=== PATIENT | female | born 1945 | race Caucasian/White ===

== ENCOUNTER 2017-10-09 02:41 | Inpatient (IN) | payer MEDICARE ==
[~2017-10-09] VITALS: Ht 167.6 cm; Wt 81.7 kg
[~2017-10-09 02:41] MED LIST: ALEVE220 M1 PO; AMITRIPTYLINE H50 MG PO; ASPIRIN ENTERI325 MG PO; ATORVASTATIN CA20 MG PO; CIPROFLOXACIN500 MG PO; CYMBALTA60 MG PO; DIPHENHYDRAMINE25 M1 PO; EFFEXOR XR 3737.5 MG PO; FUROSEMIDE40 MG; LAMOTRIGINE25 MG PO; LEVEMIR100 UNIT/1; LEVOTHYROXINE50 MCG PO; LOMOTIL TABLET1 EACH PO; NORCO 10-325 T1 EACH PO; NOVOLOG100 UNITS/; OXCARBAZEPINE150 MG PO; PROMETHAZINE HC25 M1 PO; TEMAZEPAM15 MG PO; TIZANIDINE HCL4 M1 PO; ZOLOFT50 MG PO
[2017-10-09 02:56] LABS: BASOPHILS % 0.6 % (0.0-1.0); EOSINOPHILS # (AUTO) 0.3 (0.0-0.4); EOSINOPHILS % 4.2 % (0.0-6.0); HEMATOCRIT 40.9 % (34.2-44.1); HEMOGLOBIN 13.4 g/dL (12.0-16.0); LYMPHOCYTES # (AUTO) 1.8 (1.0-3.2); LYMPHOCYTES % 27.2 % (18.0-39.1); MEAN CORPUSCULAR HEMOGLOBIN 27.3 pg (28-32); MEAN CORPUSCULAR HGB CONC 32.8 g/dL (31-35); MEAN CORPUSCULAR VOLUME 83.3 fL (81-99); MONOCYTES # (AUTO) 0.9 (0.2-0.8); NEUTROPHILS # (AUTO) 3.6 (2.1-6.9); NEUTROPHILS % 54.4 % (38.7-80.0); PLATELET COUNT 199 x10e3/uL (140-360); RED BLOOD COUNT 4.91 x10e6/uL (3.6-5.1); RED CELL DISTRIBUTION WIDTH 13.2 % (11.7-14.4)
[2017-10-09 03:10] LABS: INR 0.97; PARTIAL THROMBOPLASTIN TIME 28.1 seconds (23.8-35.5); PROTHROMBIN TIME 13.4 seconds (11.9-14.5)
[2017-10-09 03:20] LABS: ALBUMIN 3.7 g/dL (3.5-5.0); ALBUMIN/GLOBULIN RATIO 0.9 (0.8-2.0); CALCIUM 9.3 mg/dL (8.4-10.2); CREATININE, SERUM 1.39 mg/dL (0.57-1.11)
[2017-10-09 03:26] LABS: CREATINE KINASE MB 2.1 ng/mL (0.00-5.00)
[2017-10-09] MEDS ORDERED: SEROQUEL25 MG PO (03:29)
[2017-10-09] MEDS ORDERED: JANUVIA100 MG PO (03:29)
[2017-10-09] MEDS ORDERED: CYMBALTA30 MG (03:29)
[2017-10-09] MEDS ORDERED: KLOR-CON 1010 MEQ (03:29)
[2017-10-09 03:46] LABS: TROPONIN I 0.01 ng/mL (0-0.300)
--- NOTE | 2017-10-09 04:09 | Diagnostic Imaging Report ---
HIP LEFT 2-3 VW (+/- PELVIS) Comparison: None Clinical history: Status post fall with left hip pain Findings: See impression Impression: 1. Comminuted left femoral (transcervical?) fracture with varus angulation and extension of fracture line into the proximal femoral diaphysis. 2. Age indeterminate/likely chronic fracture of the left inferior pubic ramus. 3. Moderate bilateral hip and partially imaged lumbosacral degenerative changes. Signed by: Dr Cassy uDron MD on 10/09/2017 4:06 AM
--- NOTE | 2017-10-09 04:12 | Diagnostic Imaging Report ---
CHEST SINGLE (PORTABLE), 10/09/2017 2:45 AM Technique: CHEST SINGLE (PORTABLE) Comparison: 06/12/2016 Clinical history: Status post fall, hip fracture Findings: Cardiomediastinal silhouette: Stable. Lungs: No consolidation or edema. Pleural spaces: No effusion or pneumothorax. Bones: Partially imaged right humeral hardware. Unchanged remote right posterior rib fractures. Impression: 1. Lines/Tubes: None 2. No acute abnormality. Signed by: Dr Cassy Duron MD on 10/09/2017 4:08 AM
--- NOTE | 2017-10-09 04:37 | Diagnostic Imaging Report ---
EXAMINATION: Head and cervical spine CT without contrast. HISTORY: Status post fall, head and neck trauma, laceration in the head COMPARISON: Head and cervical spine CT on 06/12/2016. TECHNIQUE: Multidetector axial images were obtained without contrast from the foramen magnum to the vertex and through the cervical spine. The images were reconstructed using brain and bone algorithms. Thin section brain images were reformatted into coronal and sagittal planes. HEAD CT FINDINGS: Skull: No lytic or blastic lesions. No fractures. Parenchyma: -Persistent severe confluent supratentorial white matter chronic microvascular ischemic changes and small chronic lacunar infarcts in the left head of the caudate, right lentiform nucleus and genu of the left internal capsule. - No mass, hemorrhage or CT evidence of acute vascular insult. Brain volume: Normal for age. Ventricles: No hydrocephalus or displacement. Arteries: No density suggestive of thrombus. Dural sinuses: No abnormal density. Extra-axial spaces: No abnormal density. Foramen magnum: No mass, Chiari malformation, or basilar invagination. Sella: No obvious mass. Paranasal/mastoid sinuses: Imaged portions unremarkable. CERVICAL SPINE CT FINDINGS: Alignment:Normal alignment and lordosis. Soft tissues: Approximately 2.4 cm partially calcified nodule in the left lobe of the thyroid gland. Vertebrae: Normal height and density. No acute fracture, infection or neoplasm. Intervertebral disk degenerative changes: C1-C2: Normal. C2-C3: Multiple sclerosis without stenoses. C3-C4: Normal. C4-C5: Prominent facet arthrosis on the right side without significant stenoses. Minimal anterolisthesis.. C5-C6: Mild uncovertebral and facet arthrosis without significant stenoses. C6-C7: Disc osteophyte complex formation, bilateral uncovertebral and facet arthrosis. No significant stenoses.. C7-T1: Normal. IMPRESSION: Head CT: 1. No acute posttraumatic intracranial abnormalities, particularly no hemorrhage. 2. Unchanged moderate chronic microvascular ischemic changes. 3. Unchanged small chronic lacunar infarcts as detailed above. Cervical spine CT: 1. No acute fractures or dislocations. 2. Chronic degenerative changes as detailed above are unchanged. Note: Acute postraumatic spinal cord, vascular or ligamentous injuries cannot be excluded on the basis of the current examination. Signed by: Dr. Mackenzie Urbano M.D. on 10/09/2017 4:33 AM
[2017-10-09] MEDS ORDERED: HYDROMORPHONE 1MG/1ML INJ IV PRN (05:00)
[2017-10-09 05:07] LABS: BILIRUBIN,URINE NEGATIVE (NEGATIVE); KETONES,URINE NEGATIVE (NEGATIVE); LEUKOCYTE ESTERASE ,URINE NEGATIVE (NEGATIVE); NITRITE,URINE NEGATIVE (NEGATIVE); PROTEIN,URINE DIPSTICK NEGATIVE (NEGATIVE); URINE UROBILINOGEN 0.2 mg/dL (0.2 - 1)
[2017-10-09 05:09] LABS: CLARITY,URINE CLEAR (CLEAR); COLOR,URINE YELLOW (YELLOW)
[2017-10-09 05:23] LABS: EPITHELIAL CELLS,URINE RARE /LPF; TRANSITIONAL EPI CELLS,URINE FEW
[2017-10-09] MEDS: SODIUM CHLORIDE 0.9% 1000ML 1,000 ML IV SCH ×2 (05:23→12:47)
[2017-10-09 05:24] LABS: BACTERIA,URINE RARE /HPF; RBC,URINE 0-5 /HPF (0-5); WBC,URINE (MAN) 0-5 /HPF (0-5)
[2017-10-09 07:05] VITALS: BP 143/65
[2017-10-09 08:14] VITALS: BP 143/63
[2017-10-09] MEDS: LAMOTRIGINE 25 MG TAB PO SCH (09:00)
[2017-10-09] MEDS: DULOXETINE HCL 30 MG DELAYED RELEASE PO SCH (09:00)
[2017-10-09] MEDS: ATORVASTATIN 20 MG TAB PO SCH (09:00)
[2017-10-09] MEDS: SERTRALINE HCL 50 MG TAB PO SCH (09:00)
[2017-10-09] MEDS: FUROSEMIDE 40 MG TAB PO SCH (09:00)
[2017-10-09] MEDS ORDERED: HYDROCODONE/APAP 5MG-325MG TAB PO ONE (09:00)
[2017-10-09] MEDS ORDERED: CEFAZOLIN SOD 2 GM in WATER STERILE 10ML VIAL 10 ML IV ONE (09:15)
--- NOTE | 2017-10-09 09:31 | Discharge Summary ---
CHIEF COMPLAINT: Left hip pain. HISTORY OF PRESENT ILLNESS: The patient is a 71-year-old lady who was walking to the bathroom last night. She slipped and fell and complained of immediate onset left hip pain. She was brought into the emergency room, where she was noted have a left hip fracture. Orthopedic consultation was requested. PAST MEDICAL HISTORY: Insulin-dependent diabetes, chronic low back pain. MEDICATIONS: Insulin and chronic Lortab. See medicine reconciliation list. PREVIOUS SURGERIES: Right shoulder ORIF, cholecystectomy, and bilateral foot surgery. ALLERGIES: CIPRO, NEURONTIN, AND LATEX. SOCIAL HISTORY: She is . She does not smoke or drink. She either walks independently or uses a walker/Rollator when necessary. PHYSICAL EXAM: She is a medically frail and deconditioned 71-year-old lady. She is in discomfort. Her left lower extremity is externally rotated. She has pain with any attempted passive range of motion. There are no puncture wounds or abrasions around the left hip. She has diminished muscle tone throughout her upper and lower extremities. LABORATORY STUDIES: X-rays show a left hip intertrochanteric fracture. Her blood work is otherwise unremarkable. IMPRESSION: Left hip fracture. PLAN: The findings and options were discussed with the patient. She was previously a limited ambulator with a walker or Rollator. She is medically deconditioned. Nonetheless, I would recommend an open reduction and internal fixation, using an intramedullary hip screw. The recovery was discussed. It appears she will need a care home facility. We will proceed with getting this on the schedule as soon as possible. Thank you for the consultation. EDEN LAWRENCE MD Job#: [id number] [place]
[2017-10-09] MEDS: HYDROMORPHONE 2MG/ML INJ IV PRN ×2 (10:25→17:46)
[2017-10-09] MEDS: ONDANSETRON HCL INJ 2 MG/ML VIAL IV PRN ×2 (10:25→17:45)
[2017-10-09 12:41] VITALS: BP 137/63
[2017-10-09] MEDS ORDERED: SODIUM CHLORIDE 0.9% 1000ML 1,000 ML IV SCH (14:22)
[2017-10-09] MEDS ORDERED: ONDANSETRON HCL INJ 2 MG/ML VIAL IV PRN (14:30)
[2017-10-09] MEDS ORDERED: DOCUSATE SODIUM 100 MG CAP PO PRN (14:30)
[2017-10-09] MEDS ORDERED: DIPHENHYDRAMINE HCL INJ 50 MG/ML VIAL IM/IV PRN (14:30)
[2017-10-09] MEDS ORDERED: ACETAMINOPHEN 650 MG SUPP PR PRN (14:30)
[2017-10-09] MEDS ORDERED: PROMETHAZINE HCL (IM) 25 MG/ML VIAL INJ PRN (14:30)
[2017-10-09] MEDS ORDERED: ZOLPIDEM TARTRATE 5 MG TAB PO PRN (14:30)
[2017-10-09] MEDS ORDERED: EPHEDRINE SULFATE INJ 50 MG/10 ML SYR ONE (14:32)
[2017-10-09] MEDS ORDERED: LIDOCAINE HCL 2% LOCAL INJ 5 ML SDV VIAL INJ ONE (14:32)
[2017-10-09] MEDS ORDERED: SEVOFLURANE INHAL SOLN 250 ML PEN BTL ONE (14:32)
[2017-10-09] MEDS ORDERED: ONDANSETRON HCL INJ 2 MG/ML VIAL ONE (14:32)
[2017-10-09] MEDS ORDERED: ACETAMINOPHEN 1000 MG/100 ML IV ONE (14:32)
[2017-10-09] MEDS ORDERED: PROPOFOL IV EMULSION 10 MG/ML 20 ML VIAL ONE (14:32)
[2017-10-09] MEDS ORDERED: CEFAZOLIN SOD 1 GM VIAL ONE (14:32)
[2017-10-09] MEDS ORDERED: FENTANYL CITRATE/PF 100MCG/2 ML INJ ONE (15:33)
[2017-10-09] MEDS ORDERED: MIDAZOLAM HCL 2 MG/2 ML VIAL ONE (15:33)
--- NOTE | 2017-10-09 16:03 | Operative Report ---
DATE OF PROCEDURE: October 09, 2017 PREOPERATIVE DIAGNOSIS: Left hip intertrochanteric fracture. POSTOPERATIVE DIAGNOSIS: Left hip intertrochanteric fracture. PROCEDURE: Open reduction and internal fixation, left hip (long intramedullary hip screw). INDICATIONS: The patient is a 71-year-old limited ambulator who fell at home. She has a left hip intertrochanteric fracture. The findings and options have been discussed with the patient. We plan on surgical stabilization. The risks and benefits have been explained. The recovery was discussed. The patient stated she understood and wished to proceed. DESCRIPTION OF PROCEDURE: The patient was brought to the operating room and placed under general anesthetic. Her left hip was prepped and draped in a sterile manner. She was placed in gentle traction on the fracture table. A C-arm image intensifier was used to confirm satisfactory reduction. A small incision was made proximal to the tip of the greater trochanter. A curved awl was used to assist in placing a guide pin down the femoral canal. This was over-reamed to 12 mm. A [employer] intramedullary hip screw was then placed. This was 360 mm in length. This was locked proximally with a 105-mm lag screw. Nice, secure fixation was obtained. The final x-rays confirmed satisfactory reduction and positioning of the hardware. The wounds were irrigated and closed. Subcuticular Vicryl, Mastisol and Steri-Strips were used to close the skin. A sterile bandage was applied. The patient was extubated and transported to the recovery room in stable condition. Blood loss was approximately 100 mL, and all needle and sponge counts were correct. Job#: [id number]
[2017-10-09] MEDS: CELECOXIB 200 MG CAP PO SCH (16:40)
[2017-10-09] MEDS: ASPIRIN 325 MG TAB PO SCH (16:40)
[2017-10-09] MEDS ORDERED: CELECOXIB 100 MG CAP PO SCH (17:00)
[2017-10-09] MEDS: ACETAMINOPHEN 1000 MG/100 ML IV SCH ×2 (17:00→23:59)
[2017-10-09 17:12] VITALS: BP 159/71
[2017-10-09] MEDS ORDERED: DEXTROSE 50% SYRINGE 50 ML IV PRN (17:30)
--- NOTE | 2017-10-09 18:55 | History and Physical ---
CHIEF COMPLAINT: Fall on left hip. HISTORY OF PRESENT ILLNESS: A 71-year-old female who multiple comorbidities who woke up last night, felt very lightheaded and fell on her left hip, found to have a left intratrochanteric femur fracture on imaging studies. The patient was taken to the OR this morning by orthopedics, which is status post ORIF performed early this morning. The patient was seen and evaluated postoperatively, currently doing well with no other complaints. REVIEW OF SYSTEMS: Pertinent positive: Lightheadedness, dizziness, fall. Pertinent negative: Denies any chest pain, palpitations, nausea, vomiting, diarrhea, dysuria, hematuria, frequency, urgency, abdominal pain or any other complaints. The rest of the 14-point review of systems have been reviewed with the patient and are negative. ALLERGIES: LATEX, NATURAL RUBBER, CIPRO, GABAPENTIN AND PREGABALIN. MEDICATIONS: See medication reconciliation form. PAST MEDICAL HISTORY: She has multiple psychiatric issues. PAST SURGICAL HISTORY: Reports none. FAMILY HISTORY: Hypertension and diabetes. SOCIAL HISTORY: No drugs and no alcohol. Unsure about smoking history. LABORATORY DATA: White count 6.6, hemoglobin 13, hematocrit 40, platelets 199,000, coagulation PT 13, INR 0.97, PTT 28. Chemistry: Sodium 135, potassium 5, chloride 106, bicarb 17, BUN 28, creatinine 1.4, glucose 126. LFTs were normal. Troponin was negative. Urinalysis was negative. Microbiology: Pending. IMAGING: CT of the brain was negative. CT cervical spine was also negative. Chest x-ray was negative. Hip x-ray was consistent with left intratrochanteric femur fracture. PHYSICAL EXAMINATION VITAL SIGNS: Temperature 98.2. Pulse 91, respiratory rate 18, blood pressure 159/71, pulse oximetry 98% on room air. GENERAL: In no acute distress, alert and oriented x3, cooperative on examination. HEENT: Head is normocephalic, atraumatic. Eyes: Pupils equal, round and reactive to light bilaterally. Extraocular movements intact bilaterally. Throat with no evidence of erythema or exudates in the posterior pharynx. He has poor dentition. NECK: Supple with good range of motion. PULMONARY: Clear to auscultation bilaterally. No wheezing, no rales, no rhonchi, no crackles appreciated. CARDIOVASCULAR: Positive S1 and S2, no murmurs, rubs or gallops appreciated. ABDOMEN: Soft, nondistended, nontender to palpation Bowel sounds were present. MUSCULOSKELETAL: Strength 5/5 throughout, no evidence of musculoskeletal deficit on exam. No weakness appreciated. NEUROLOGIC: Cranial nerves II-XII grossly intact. No evidence of neurological deficit on examination. SKIN: Intact. Warm to touch. Good capillary refill. EXTREMITIES: No edema. Good range of motion throughout. PSYCHIATRIC: Normal affect and mood. IMPRESSION 1. Status post left femur open reduction internal fixation. 2. Multiple psychiatric issues. 3. Hyperlipidemia. 4. Insomnia. PLAN: Continue same home medications. Pain control. PT and OT evaluation. nursing home facility order. Follow orthopedic recommendations. Will continue to follow. Job#: [id number]
[2017-10-09 20:00] VITALS: BP 111/55
[2017-10-09] MEDS: CEFAZOLIN SOD 1 GM VIAL IV SCH (20:00)
[2017-10-09] MEDS: QUETIAPINE FUMARATE 25 MG TAB PO SCH (20:26)
[2017-10-09] MEDS: KETOROLAC TROMETHAMINE 30 MG/ML VIAL IV PRN (20:26)
[2017-10-09] MEDS: INSULIN REGULAR, HUMAN 100 UNIT/1 ML 3ML VIAL SQ SCH (21:00)
[2017-10-09] MEDS ORDERED: CEFAZOLIN SOD 1 GM/NS 50ML 50 ML IV SCH (22:00)
[2017-10-10] VITALS: BP 95/58
[2017-10-10] MEDS: CEFAZOLIN SOD 1 GM VIAL IV SCH ×2 (03:26→12:33)
[2017-10-10 04:00] VITALS: BP_SYST 108; BP_SYST 95; BP_DIAS 58
[2017-10-10] MEDS: ACETAMINOPHEN 1000 MG/100 ML IV SCH ×2 (05:19→12:33)
[2017-10-10] MEDS: SODIUM CHLORIDE 0.9% 1000ML 1,000 ML IV SCH (05:40)
[2017-10-10 07:07] LABS: BASOPHILS % 0.4 % (0.0-1.0); EOSINOPHILS # (AUTO) 0.3 (0.0-0.4); HEMATOCRIT 29.5 % (34.2-44.1); HEMOGLOBIN 9.4 g/dL (12.0-16.0); LYMPHOCYTES # (AUTO) 1.3 (1.0-3.2); LYMPHOCYTES % 27.6 % (18.0-39.1); MEAN CORPUSCULAR HEMOGLOBIN 27.3 pg (28-32); MEAN CORPUSCULAR HGB CONC 31.9 g/dL (31-35); MEAN CORPUSCULAR VOLUME 85.8 fL (81-99); MONOCYTES # (AUTO) 0.5 (0.2-0.8); NEUTROPHILS # (AUTO) 2.6 (2.1-6.9); NEUTROPHILS % 55.6 % (38.7-80.0); PLATELET COUNT 152 x10e3/uL (140-360); RED BLOOD COUNT 3.44 x10e6/uL (3.6-5.1); RED CELL DISTRIBUTION WIDTH 13.5 % (11.7-14.4)
[2017-10-10] MEDS: HYDROCODONE/APAP 7.5MG-325MG 1 EA TAB PO PRN ×2 (07:23→15:27)
[2017-10-10 07:30] LABS: ALBUMIN 2.8 g/dL (3.5-5.0); ANION GAP 12.5 mmol/L (8-16); CALCIUM 8.2 mg/dL (8.4-10.2); CREATININE, SERUM 1.34 mg/dL (0.57-1.11); POTASSIUM 5.5 mmol/L (3.5-5.1)
[2017-10-10] MEDS: ASPIRIN 325 MG TAB PO SCH ×2 (08:48→17:26)
[2017-10-10] MEDS: INSULIN REGULAR, HUMAN 100 UNIT/1 ML 3ML VIAL SQ SCH ×4 (08:48→20:40)
[2017-10-10] MEDS: LAMOTRIGINE 25 MG TAB PO SCH (08:48)
[2017-10-10] MEDS: DULOXETINE HCL 30 MG DELAYED RELEASE PO SCH (08:48)
[2017-10-10] MEDS: CELECOXIB 200 MG CAP PO SCH ×2 (08:48→17:26)
[2017-10-10] MEDS: ATORVASTATIN 20 MG TAB PO SCH (08:49)
[2017-10-10] MEDS: SERTRALINE HCL 50 MG TAB PO SCH (08:49)
[2017-10-10 08:51] VITALS: BP 128/60
[2017-10-10] MEDS: FUROSEMIDE 40 MG TAB PO SCH (09:45)
[2017-10-10] MEDS: KETOROLAC TROMETHAMINE 30 MG/ML VIAL IV PRN (10:25)
[2017-10-10 12:57] VITALS: BP 106/53
[2017-10-10] MEDS ORDERED: ACETAMINOPHEN 1000 MG/100 ML IV PRN (14:30)
[2017-10-10 16:38] VITALS: BP 95/48
[2017-10-10] MEDS ORDERED: BENZONATATE 100 MG CAP PO PRN (18:30)
[2017-10-10] MEDS ORDERED: FUROSEMIDE INJ 10 MG/ML 4 ML VIAL IV ONE (18:30)
[2017-10-10 20:00] VITALS: BP 105/56
[2017-10-10] MEDS: HYDROCODONE/APAP 5MG-325MG TAB PO PRN (20:39)
[2017-10-10] MEDS: QUETIAPINE FUMARATE 25 MG TAB PO SCH (20:40)
[2017-10-10] MEDS ORDERED: SODIUM CHLORIDE 0.9% 1000ML 1,000 ML IV SCH (23:15)
[2017-10-11] VITALS (7 sets, daily range): BP systolic 80–145; BP diastolic 48–68
[2017-10-11] MEDS: HYDROCODONE/APAP 5MG-325MG TAB PO PRN (00:30)
[2017-10-11 07:53] LABS: BASOPHILS % 0.2 % (0.0-1.0); EOSINOPHILS # (AUTO) 0.3 (0.0-0.4); EOSINOPHILS % 5.5 % (0.0-6.0); HEMATOCRIT 26.9 % (34.2-44.1); HEMOGLOBIN 8.8 g/dL (12.0-16.0); LYMPHOCYTES # (AUTO) 1.4 (1.0-3.2); LYMPHOCYTES % 26.1 % (18.0-39.1); MEAN CORPUSCULAR HEMOGLOBIN 27.3 pg (28-32); MEAN CORPUSCULAR HGB CONC 32.7 g/dL (31-35); MEAN CORPUSCULAR VOLUME 83.5 fL (81-99); MONOCYTES # (AUTO) 0.4 (0.2-0.8); MONOCYTES % 7.5 % (4.4-11.3); NEUTROPHILS # (AUTO) 3.3 (2.1-6.9); NEUTROPHILS % 60.3 % (38.7-80.0); PLATELET COUNT 150 x10e3/uL (140-360); RED BLOOD COUNT 3.22 x10e6/uL (3.6-5.1); RED CELL DISTRIBUTION WIDTH 13.5 % (11.7-14.4)
[2017-10-11] MEDS: HYDROCODONE/APAP 7.5MG-325MG 1 EA TAB PO PRN ×3 (08:02→20:32)
[2017-10-11 08:14] LABS: ANION GAP 12.9 mmol/L (8-16); CALCIUM 8.2 mg/dL (8.4-10.2); CREATININE, SERUM 1.28 mg/dL (0.57-1.11); POTASSIUM 3.9 mmol/L (3.5-5.1)
[2017-10-11] MEDS: DULOXETINE HCL 30 MG DELAYED RELEASE PO SCH (08:27)
[2017-10-11] MEDS: LAMOTRIGINE 25 MG TAB PO SCH (08:27)
[2017-10-11] MEDS: CELECOXIB 200 MG CAP PO SCH ×2 (08:27→16:52)
[2017-10-11] MEDS: SERTRALINE HCL 50 MG TAB PO SCH (08:27)
[2017-10-11] MEDS: INSULIN REGULAR, HUMAN 100 UNIT/1 ML 3ML VIAL SQ SCH ×4 (08:27→20:32)
[2017-10-11] MEDS: ASPIRIN 325 MG TAB PO SCH ×2 (08:27→16:52)
[2017-10-11] MEDS: ATORVASTATIN 20 MG TAB PO SCH (08:27)
[2017-10-11] MEDS: KETOROLAC TROMETHAMINE 30 MG/ML VIAL IV PRN (10:10)
[2017-10-11] MEDS: QUETIAPINE FUMARATE 25 MG TAB PO SCH (20:28)
[2017-10-12] VITALS: BP 115/56
[2017-10-12 04:00] VITALS: BP 147/65
[2017-10-12] MEDS: HYDROCODONE/APAP 7.5MG-325MG 1 EA TAB PO PRN ×3 (04:36→17:45)
[2017-10-12] MEDS: LAMOTRIGINE 25 MG TAB PO SCH (08:22)
[2017-10-12] MEDS: CELECOXIB 200 MG CAP PO SCH ×2 (08:22→17:19)
[2017-10-12] MEDS: ASPIRIN 325 MG TAB PO SCH ×2 (08:22→17:19)
[2017-10-12] MEDS: DULOXETINE HCL 30 MG DELAYED RELEASE PO SCH (08:22)
[2017-10-12] MEDS: SERTRALINE HCL 50 MG TAB PO SCH (08:22)
[2017-10-12] MEDS: ATORVASTATIN 20 MG TAB PO SCH (08:22)
[2017-10-12] MEDS: INSULIN REGULAR, HUMAN 100 UNIT/1 ML 3ML VIAL SQ SCH ×4 (08:22→20:31)
[2017-10-12 08:24] VITALS: BP 123/70
[2017-10-12 12:26] VITALS: BP 118/57
[2017-10-12] MEDS ORDERED: XANAX0.5 MG PO (15:26)
[2017-10-12] MEDS ORDERED: ALPRAZOLAM 0.5 MG TAB PO PRN (15:30)
[2017-10-12 16:09] VITALS: BP 130/63
[2017-10-12 20:11] VITALS: BP 134/62
[2017-10-12] MEDS: QUETIAPINE FUMARATE 25 MG TAB PO SCH (20:30)
[2017-10-12] MEDS: KETOROLAC TROMETHAMINE 30 MG/ML VIAL IV PRN (20:38)
[2017-10-13] VITALS: BP 132/60
[2017-10-13 04:00] VITALS: BP 157/70
[2017-10-13] MEDS: ASPIRIN 325 MG TAB PO SCH ×2 (08:20→16:27)
[2017-10-13] MEDS: SERTRALINE HCL 50 MG TAB PO SCH (08:20)
[2017-10-13] MEDS: INSULIN REGULAR, HUMAN 100 UNIT/1 ML 3ML VIAL SQ SCH ×4 (08:20→21:00)
[2017-10-13] MEDS: DULOXETINE HCL 30 MG DELAYED RELEASE PO SCH (08:20)
[2017-10-13] MEDS: LAMOTRIGINE 25 MG TAB PO SCH (08:20)
[2017-10-13] MEDS: ATORVASTATIN 20 MG TAB PO SCH (08:20)
[2017-10-13] MEDS: CELECOXIB 200 MG CAP PO SCH ×2 (08:20→16:27)
[2017-10-13] MEDS: HYDROCODONE/APAP 7.5MG-325MG 1 EA TAB PO PRN ×3 (11:30→23:57)
[2017-10-13 11:39] VITALS: BP 134/63
[2017-10-13 13:42] LABS: BASOPHILS % 0.2 % (0.0-1.0); EOSINOPHILS # (AUTO) 0.2 (0.0-0.4); EOSINOPHILS % 2.8 % (0.0-6.0); HEMATOCRIT 27.5 % (34.2-44.1); HEMOGLOBIN 8.7 g/dL (12.0-16.0); LYMPHOCYTES # (AUTO) 1.3 (1.0-3.2); LYMPHOCYTES % 21.8 % (18.0-39.1); MEAN CORPUSCULAR HEMOGLOBIN 27.1 pg (28-32); MEAN CORPUSCULAR HGB CONC 31.6 g/dL (31-35); MEAN CORPUSCULAR VOLUME 85.7 fL (81-99); MONOCYTES # (AUTO) 0.4 (0.2-0.8); NEUTROPHILS # (AUTO) 4.2 (2.1-6.9); NEUTROPHILS % 68.1 % (38.7-80.0); RED BLOOD COUNT 3.21 x10e6/uL (3.6-5.1); RED CELL DISTRIBUTION WIDTH 13.4 % (11.7-14.4)
[2017-10-13 14:38] LABS: PLATELET COUNT 179 x10e3/uL (140-360)
[2017-10-13 16:37] VITALS: BP 141/63
[2017-10-13] MEDS ORDERED: ENOXAPARIN SOD INJ 40 MG/0.4 ML SYR SC SCH (17:00)
[2017-10-13 20:00] VITALS: BP 137/65
[2017-10-13] MEDS: QUETIAPINE FUMARATE 25 MG TAB PO SCH (23:56)
[2017-10-14] VITALS (7 sets, daily range): BP systolic 133–177; BP diastolic 67–80
[2017-10-14] MEDS: HYDROCODONE/APAP 7.5MG-325MG 1 EA TAB PO PRN ×3 (04:10→15:54)
[2017-10-14 06:42] LABS: BASOPHILS % 0.1 % (0.0-1.0); EOSINOPHILS # (AUTO) 0.2 (0.0-0.4); EOSINOPHILS % 3.4 % (0.0-6.0); HEMATOCRIT 23.8 % (34.2-44.1); LYMPHOCYTES % 30.3 % (18.0-39.1); MEAN CORPUSCULAR HGB CONC 32.4 g/dL (31-35); MEAN CORPUSCULAR VOLUME 83.5 fL (81-99); MONOCYTES # (AUTO) 0.5 (0.2-0.8); MONOCYTES % 7.6 % (4.4-11.3); NEUTROPHILS # (AUTO) 3.9 (2.1-6.9); NEUTROPHILS % 57.9 % (38.7-80.0); PLATELET COUNT 180 x10e3/uL (140-360); RED BLOOD COUNT 2.85 x10e6/uL (3.6-5.1); RED CELL DISTRIBUTION WIDTH 13.3 % (11.7-14.4)
[2017-10-14 06:43] LABS: HEMOGLOBIN 7.7 g/dL (12.0-16.0)
[2017-10-14 07:20] LABS: ANION GAP 13.3 mmol/L (8-16); CALCIUM 8.9 mg/dL (8.4-10.2); CREATININE, SERUM 0.95 mg/dL (0.57-1.11); POTASSIUM 4.3 mmol/L (3.5-5.1)
--- NOTE | 2017-10-14 08:22 | Progress Note ---
DATE: October 14, 2017 TIME: 7:40 a.m. OVERNIGHT: Pain controlled. REVIEW OF SYSTEMS: Denies any dizziness. PHYSICAL EXAMINATION VITAL SIGNS: Reviewed. GENERAL: A tired-appearing woman resting in bed. HEENT: Anicteric. CARDIOVASCULAR: Normal S1 and S2. LUNGS: Moderate breath sounds. ABDOMEN: Soft, nontender and nondistended. EXTREMITIES: Left hip dressing in place clean and dry. SKIN: Dry. PSYCHIATRIC: Normal affect. NEUROLOGICAL: Alert and oriented times 3. LABS: Reviewed. MEDICATIONS: Reviewed. ASSESSMENT: A 71-year-old woman with: 1. Left femoral fracture. 2. Acute kidney injury. 3. Normocytic anemia, moderate and worsening. 4. Hip pain. 5. Insomnia. 6. Psychiatric disorder. 7. Diabetes mellitus, type 2. PLAN 1. Continue physical therapy. 2. Continue pain control. 3. Monitor blood counts. Obtain stool occult blood. Add Pantoprazole for GI prophylaxis. Obtain anemia panel. Utilize ferrous sulfate. 4. Resume Levemir. Will start at 7 units daily. Will also obtain a hemoglobin A1c and lipid panel. 5. Monitor closely. Continue physical therapy. 6. Skilled facility placement pending. Job#: [id number] [place]
[2017-10-14 08:34] LABS: FERRITIN 99.15 ng/mL (4.63-204.00)
[2017-10-14] MEDS ORDERED: INSULIN DETEMIR 100 UNIT/ML PEN SQ SCH ×2 (09:00→21:00)
[2017-10-14] MEDS: LAMOTRIGINE 25 MG TAB PO SCH (09:00)
[2017-10-14] MEDS: PANTOPRAZOLE SOD 40 MG TABEC PO SCH ×2 (09:00→22:32)
[2017-10-14] MEDS: DULOXETINE HCL 30 MG DELAYED RELEASE PO SCH ×2 (09:00→17:37)
[2017-10-14] MEDS: ATORVASTATIN 20 MG TAB PO SCH (09:00)
[2017-10-14] MEDS: ASPIRIN 325 MG TAB PO SCH ×2 (09:00→17:37)
[2017-10-14] MEDS: SERTRALINE HCL 50 MG TAB PO SCH (09:01)
[2017-10-14] MEDS: INSULIN REGULAR, HUMAN 100 UNIT/1 ML 3ML VIAL SQ SCH ×4 (09:01→21:00)
[2017-10-14] MEDS: FERROUS SULFATE 325 MG TAB PO SCH ×2 (10:14→17:37)
[2017-10-14 11:58] LABS: HEMATOCRIT 26.2 % (34.2-44.1); HEMOGLOBIN 8.4 g/dL (12.0-16.0)
[2017-10-14] MEDS ORDERED: ATORVASTATIN 20 MG TAB PO SCH (21:00)
[2017-10-14] MEDS: QUETIAPINE FUMARATE 25 MG TAB PO SCH (22:32)
[2017-10-14] MEDS: HYDROCODONE/APAP 5MG-325MG TAB PO PRN (22:32)
[2017-10-15] VITALS: BP 161/70
[2017-10-15 04:00] VITALS: BP 174/81
[2017-10-15 07:55] LABS: BASOPHILS % 0.3 % (0.0-1.0); EOSINOPHILS # (AUTO) 0.2 (0.0-0.4); EOSINOPHILS % 3.2 % (0.0-6.0); HEMATOCRIT 27.4 % (34.2-44.1); HEMOGLOBIN 8.8 g/dL (12.0-16.0); LYMPHOCYTES # (AUTO) 1.6 (1.0-3.2); LYMPHOCYTES % 22.2 % (18.0-39.1); MEAN CORPUSCULAR HEMOGLOBIN 27.2 pg (28-32); MEAN CORPUSCULAR HGB CONC 32.1 g/dL (31-35); MEAN CORPUSCULAR VOLUME 84.6 fL (81-99); MONOCYTES # (AUTO) 0.5 (0.2-0.8); MONOCYTES % 7.1 % (4.4-11.3); NEUTROPHILS # (AUTO) 4.7 (2.1-6.9); NEUTROPHILS % 65.5 % (38.7-80.0); PLATELET COUNT 263 x10e3/uL (140-360); RED BLOOD COUNT 3.24 x10e6/uL (3.6-5.1); RED CELL DISTRIBUTION WIDTH 13.4 % (11.7-14.4)
[2017-10-15 08:04] LABS: ANION GAP 14.1 mmol/L (8-16); CALCIUM 9.5 mg/dL (8.4-10.2); CREATININE, SERUM 1.01 mg/dL (0.57-1.11); POTASSIUM 5.1 mmol/L (3.5-5.1)
[2017-10-15 08:16] VITALS: BP 171/76
[2017-10-15] MEDS: HYDROCODONE/APAP 7.5MG-325MG 1 EA TAB PO PRN (08:23)
[2017-10-15] MEDS: INSULIN REGULAR, HUMAN 100 UNIT/1 ML 3ML VIAL SQ SCH ×3 (08:24→17:06)
[2017-10-15] MEDS: SERTRALINE HCL 50 MG TAB PO SCH (08:50)
[2017-10-15] MEDS: ASPIRIN 325 MG TAB PO SCH ×2 (08:50→17:06)
[2017-10-15] MEDS: FERROUS SULFATE 325 MG TAB PO SCH ×2 (08:50→17:06)
[2017-10-15] MEDS: DULOXETINE HCL 30 MG DELAYED RELEASE PO SCH ×2 (08:50→17:06)
[2017-10-15] MEDS: LAMOTRIGINE 25 MG TAB PO SCH (08:50)
[2017-10-15] MEDS: PANTOPRAZOLE SOD 40 MG TABEC PO SCH (08:50)
[2017-10-15 09:16] VITALS: BP 171/76
--- NOTE | 2017-10-15 09:24 | Progress Note ---
DATE: October 15, 2017 TIME: 8:00 a.m. OVERNIGHT: No events. REVIEW OF SYSTEMS: Denies any dizziness, chest pain. PHYSICAL EXAMINATION: VITAL SIGNS: Reviewed. GENERAL APPEARANCE: Tired-appearing woman resting in bed. HEENT: Anicteric. CARDIOVASCULAR: Normal S1 and S2. LUNGS: Bilateral breath sounds. ABDOMEN: Soft, nontender, nondistended. EXTREMITIES: No edema or calf tenderness. Left hip dressing clean and dry. NEUROLOGICAL: Alert and appropriate. Moving all extremities. LABS: Reviewed. MEDICATIONS: Reviewed. ASSESSMENT: A 71-year-old woman: 1. Left femoral fracture. 2. Acute kidney injury. 3. Normocytic anemia, moderate. 4. Hip pain. 5. Insomnia. 6. Psychiatric disorder. 7. Diabetes mellitus type 2. 8. Hypertension. PLAN: 1. Continue physical therapy. 2. Continue pain control. 3. Treat blood pressure. 4. Continue Levemir. Hemoglobin A1c is 7.3, LDL is 37, and triglyceride is 115. Glucose is still uncontrolled. Will titrate Levemir up from 7 units up to 12 units. 5. Start beta cassidy for blood pressure control. Job#: [id number]
[2017-10-15] MEDS: KETOROLAC TROMETHAMINE 30 MG/ML VIAL IV PRN (11:17)
[2017-10-15 12:48] VITALS: BP 138/62
[2017-10-15] MEDS ORDERED: METOPROLOL TARTRATE 25 MG TAB PO SCH (14:00)
[2017-10-15] MEDS ORDERED: ACETAMINOPHEN/CODEINE 300MG - 30MG TAB PO PRN (14:45)
[2017-10-15 16:23] VITALS: BP 120/59
[2017-10-15] MEDS ORDERED: INSULIN DETEMIR 100 UNIT/ML PEN SQ SCH (21:00)
== END 2017-10-15 18:05 | DRG 481 ==
LOC: ER 02:41 → ERHOLD 05:26 → MED/SURG 05:27
PROVIDERS: ADMIT Internal Medicine; ATTEND Internal Medicine
PROC: 0QS706Z Reposition Left Upper Femur with Intramedullary Internal Fixation Device, Open Approach (ICD-10-PCS; principal; 2017-10-09 13:00)
DX: S72.032A Displaced midcervical fracture of left femur, initial encounter for closed fracture (principal); N17.9 Acute kidney failure, unspecified; D64.9 Anemia, unspecified; E11.65 Type 2 diabetes mellitus with hyperglycemia; F09 Unspecified mental disorder due to known physiological condition; M25.552 Pain in left hip; G47.00 Insomnia, unspecified; Q75.2 Hypertelorism; F99 Mental disorder, not otherwise specified; W01.0XXA Fall on same level from slipping, tripping and stumbling without subsequent striking against object, initial encounter; Y92.002 Bathroom of unspecified non-institutional (private) residence as the place of occurrence of the external cause
CPT/HCPCS: 36415; 70450; 71010; 72125; 76000; 80048; 80053; 80061; 81001; 82270; 82550; 82553; 82728; 82948; 83036; 83540; 84466; 84484; 85014; 85018; 85025; 85610; 85730; 86850; 86900; 87086; 93005; 93971; 97139; 99284; J0690; J1170; J1650; J1885; J1940; J2001; J2250; J2405; J7030; J7799

== ENCOUNTER 2018-08-10 17:39 | Emergency (ER) | payer MEDICARE ==
[~2018-08-10] VITALS: Ht 167.6 cm; Wt 81.6 kg
[~2018-08-10 17:39] MED LIST changes: +CYMBALTA30 MG; +JANUVIA100 MG PO; +KLOR-CON 1010 MEQ; +SEROQUEL25 MG PO; +XANAX0.5 MG PO
--- OUTSIDE RECORDS SUMMARY | 2018-08-10 17:41 | XMS REPORT ---
Author [facility] Address Unknown Phone Unavailable Care Team Providers Care Batch Unit Treater Name Role Phone Ariana OWENS Unavailable Unavailable Problems This patient has no known problems. Allergies, Adverse Reactions, Alerts This patient has no known allergies or adverse reactions. Medications This patient has no known medications. Results Test Description Test Time Test Comments Text Results Atomic Results Result Comments HIP LEFT 2-3 VW (+/- PELVIS) [place] [address] Patient Name: BERNABE WILLIAMSON MR #: [id number] : 1945 Age/Sex: 71/F Req #: [id number] Adm Physician: Ordered by: DENIA OWENS MD Report #: [id number] Location: ER Room/Bed: Procedure: [id number] DX/HIP LEFT 2-3 VW (+/- PELVIS) Exam Date: Exam Time: REPORT STATUS: Signed HIP LEFT 2-3 VW (+/- PELVIS) Comparison: None Clinical history: Status post fall with left hip pain Findings: See impression Impression: 1. Comminuted left femoral (transcervical?) fracture with varus angulation and extension of fracture line into the proximal femoral diaphysis. 2. Age indeterminate/likely chronic fracture of the left inferior pubic ramus. 3. Moderate bilateral hip and partially imaged lumbosacral degenerative changes. Signed by: Dr Todd Duron MD on 10/09/2017 4:06 AM Dictated By: TODD DURON MD 5 Transcribed By: СЕРГЕЙ on 10/09/17405 COPY TO: DENIA OWENS MD CHEST SINGLE (PORTABLE) [place] [address] Patient Name: BERNABE WILLIAMSON MR #: [id number] : 1945 Age/Sex: 71/F Req #: [id number] Adm Physician: Ordered by: DENIA OWENS MD Report #: [id number] Location: ER Room/Bed: Procedure: [id number] DX/CHEST SINGLE (PORTABLE) Exam Date: 10/09/17 Exam Time: 0340 REPORT STATUS: Signed CHEST SINGLE (PORTABLE), 10/09/2017 2:45 AM Technique: CHEST SINGLE (PORTABLE) Comparison: 06/12/2016 Clinical history: Status post fall, hip fracture Findings: Cardiomediastinal silhouette: Stable. Lungs: No consolidation or edema. Pleural spaces: No effusion or pneumothorax. Bones: Partially imaged right humeral hardware. Unchanged remote right posterior rib fractures. Impression: 1. Lines/Tubes: None 2. No acute abnormality. Signed by: Dr Todd Duron MD on 10/09/2017 4:08 AM Dictated By: TODD DURON MD 7 Transcribed By: СЕРГЕЙ on 10/09/17407 COPY TO: DENIA OWENS MD CT BRAIN WO [place] [address] Patient Name: BERNABE WILLIAMSON MR #: [id number] : 1945 [facility] 71[id number] Req #: [id number] [facility] Physician: Ordered by: EDNIA OWENS MD Report #: [id number] Location: ER Room/Bed: Procedure: [id number] CT/CT BRAIN WO Exam Date: 10/09/17 Exam Time: 0310 REPORT STATUS: Signed EXAMINATION: Head and cervical spine CT without contrast. HISTORY: Status post fall, head and neck trauma, laceration in the head COMPARISON: Head and cervical spine CT on 06/12/2016. TECHNIQUE: Multidetector axial images were obtained without contrast from the foramen magnum to the vertex and through the cervical spine. The images were reconstructed using brain and bone algorithms. Thin section brain images were reformatted into coronal and sagittal planes. HEAD CT FINDINGS: Skull: No lytic or blastic lesions. No fractures. Parenchyma: -Persistent severe confluent supratentorial white matter chronic microvascular ischemic changes and small chronic lacunar infarcts in the left head of the caudate, right lentiform nucleus and genu of the left internal capsule. - No mass, hemorrhage or CT irene dence of acute vascular insult. Brain volume: Normal for age. Ventricles: No hydrocephalus or displacement. Arteries: No density suggestive of thrombus. Dural sinuses: No abnormal density. Extra-axial spaces: No abnormal density. Foramen magnum: No mass, Chiari malformation, or basilar invagination. Sella: No obvious mass. Paranasal/mastoid sinuses: Imaged portions unremarkable. CERVICAL SPINE CT FINDINGS: Alignment:Normal alignment and lordosis. Soft tissues: Approximately 2.4 cm partially calcified nodule in the left lobe of the thyroid gland. Vertebrae: Normal height and density. No acute fracture, infection or neoplasm. Intervertebral disk degenerative changes: C1-C2: Normal. C2-C3: Multiple sclerosis without stenoses. C3-C4: Normal. C4-C5: Prominent facet arthrosis on the right side without significant stenoses. Minimal anterolisthesis.. C5-C6: Mild uncovertebral and facet arthrosis without significant stenoses. C6-C7: Disc osteophyte complex formation, bilateral uncovertebral and facet arthrosis. No significant stenoses.. C7-T1: Normal. IMPRESSION: Head CT: 1. No acute posttraumatic intracranial abnormalities, particularly no hemorrhage. 2. Unchanged moderate chronic microvascular ischemic changes. 3. Unchanged small chronic lacunar infarcts as detailed above. Cervical spine CT: 1. No acute fractures or dislocations. 2. Chronic degenerative changes as detailed above are unchanged. Note: Acute postraumatic spinal cord, vascular or ligamentous injuries cannot be excluded on the basis of the current examination. Signed by: Dr. Keeley Urbano M.D. on 10/09/2017 4:33 AM Dictated By: KEELEY URBANO MD 2 Transcribed By: СЕРГЕЙ on 10/09/17432 COPY TO: DENIA OWENS MD CT CERVICAL SPINE WO [place] [address] Patient Name: BERNABE WILLIAMSON MR #: [id number] : 1945 Age/Sex: 71/F Req #: [id number] Adm Physician: Ordered by: DENIA OWENS MD Report #: [id number] Location: ER Room/Bed: Procedure: [id number] CT/CT CERVICAL SPINE WO Exam Date: 10/09/17 Exam Time: 0310 REPORT STATUS: Signed EXAMINATION: Head and cervical spine CT without contrast. HISTORY: Status post fall, head and neck trauma, laceration in the head COMPARISON: Head and cervical spine CT on 06/12/2016. TECHNIQUE: Multidetector axial images were obtained without contrast from the foramen magnum to the vertex and through the cervical spine. The images were reconstructed using brain and bone algorithms. Thin section brain images were reformatted into coronal and sagittal planes. HEAD CT FINDINGS: Skull: No lytic or blastic lesions. No fractures. Parenchyma: -Persistent severe confluent supratentorial white matter chronic microvascular ischemic changes and small chronic lacunar infarcts in the left head of the caudate, right lentiform nucleus and genu of the left internal capsule. - No mass, hemorrhage or CT evidence of acute vascular insult. Brain volume: Normal for age. Ventricles: No hydrocephalus or displacement. Arteries: No density suggestive of thrombus. Dural sinuses: No abnormal density. Extra-axial spaces: No abnormal density. Foramen magnum: No mass, Chiari malformation, or basilar invagination. Sella: No obvious mass. Paranasal/mastoid sinuses: Imaged portions unremarkable. CERVICAL SPINE CT FINDINGS: Alignment:Normal alignment and lordosis. Soft tissues: Approximately 2.4 cm partially calcified nodule in the left lobe of the thyroid gland. Vertebrae: Normal height and density. No acute fracture, infection or neoplasm. Intervertebral disk degenerative changes: C1-C2: Normal. C2-C3: Multiple sclerosis without stenoses. C3-C4: Normal. C4-C5: Prominent facet arthrosis on the right side without significant stenoses. Minimal anterolisthesis.. C5-C6: Mild uncovertebral and facet arthrosis without significant stenoses. C6-C7: Disc osteophyte complex formation, bilateral uncovertebral and facet arthrosis. No significant stenoses.. C7-T1: Normal.
[2018-08-10] MEDS ORDERED: HYDROCODONE/APAP 10MG-325MG TAB PO ONE (19:00)
--- NOTE | 2018-08-10 20:57 | Diagnostic Imaging Report ---
EXAMINATION: Left shoulder series. CLINICAL HISTORY: Status post fall 3 days ago left arm pain. COMPARISON: None. . Discussion: Decreased mineralization. Comminuted, nondisplaced likely three-part fracture of the humeral head, with fracture lines noted at the greater tuberosity and surgical neck. The humeral head remains aligned with the acetabulum. No osteolytic or osteoblastic lesions. There is no evidence of a.c. separation. Degenerative changes in the glenohumeral and acromioclavicular joints. Deformity of the distal clavicle, which likely reflects prior trauma. IMPRESSION: 1. Comminuted, nondisplaced likely 3 part fracture of the left humeral head, involving the surgical neck and greater tuberosity Signed by: Dr. Sami Singh M.D. on 08/10/2018 8:53 PM
--- NOTE | 2018-08-10 20:59 | Diagnostic Imaging Report ---
Exam: Left humerus, 3 views History: Status post fall 3 days ago Comparison: None. Findings: Exam is limited by patient positioning, particularly the distal portion of the humerus. Decreased bone mineralization. No acute, displaced fracture or dislocation in the mid to distal humerus, within the limitations of the study. No abnormal soft tissue calcification or soft tissue defect. No soft tissue swelling. Impression: 1. Exam is limited by patient positioning, particularly the distal portion of the humerus. 2. Decreased bone mineralization. 3. No acute, displaced fracture or dislocation in the mid to distal humerus, within the limitations of the study. Please see previously dictated report on dedicated shoulder films for description of humeral head fracture Signed by: Dr. Sami Singh M.D. on 08/10/2018 8:56 PM
== END 2018-08-10 22:00 | disposition home or self-care (01) ==
LOC: ER 17:39
DX: S42.352A Displaced comminuted fracture of shaft of humerus, left arm, initial encounter for closed fracture (principal); W01.0XXA Fall on same level from slipping, tripping and stumbling without subsequent striking against object, initial encounter; Y93.01 Activity, walking, marching and hiking; Y92.008 Other place in unspecified non-institutional (private) residence as the place of occurrence of the external cause; E11.9 Type 2 diabetes mellitus without complications; F31.9 Bipolar disorder, unspecified
CPT/HCPCS: 99283

== ENCOUNTER 2021-02-06 04:42 | Inpatient (IN) | payer MEDICARE ==
[~2021-02-06] VITALS: Ht 170.2 cm; Wt 81.6 kg
[~2021-02-06 04:42] MED LIST changes: -CYMBALTA30 MG; +CYMBALTA30 MG PO; -LEVEMIR100 UNIT/1; +LEVEMIR100 UNIT/1 SQ
[2021-02-06] MEDS ORDERED: SODIUM CHLORIDE 0.9% 1000ML 1,000 ML IV STA (04:46)
[2021-02-06 05:13] LABS: BASOPHILS % 0.5 % (0.0-1.0); EOSINOPHILS # (AUTO) 0.2 (0.0-0.4); EOSINOPHILS % 2.7 % (0.0-6.0); HEMATOCRIT 44.7 % (34.2-44.1); HEMOGLOBIN 14.2 g/dL (12.0-16.0); LYMPHOCYTES % 25.9 % (18.0-39.1); MEAN CORPUSCULAR HEMOGLOBIN 26.3 pg (28-32); MEAN CORPUSCULAR HGB CONC 31.8 g/dL (31-35); MEAN CORPUSCULAR VOLUME 82.9 fL (81-99); MONOCYTES # (AUTO) 0.7 (0.2-0.8); MONOCYTES % 8.4 % (4.4-11.3); NEUTROPHILS # (AUTO) 4.8 (2.1-6.9); PLATELET COUNT 318 x10e3/uL (140-360); RED BLOOD COUNT 5.39 x10e6/uL (3.6-5.1)
[2021-02-06 05:18] LABS: CLARITY,URINE CLEAR (CLEAR); COLOR,URINE YELLOW (YELLOW); KETONES,URINE NEGATIVE (NEGATIVE); LEUKOCYTE ESTERASE ,URINE NEGATIVE (NEGATIVE); NITRITE,URINE NEGATIVE (NEGATIVE); PROTEIN,URINE DIPSTICK >=300 (NEGATIVE); URINE UROBILINOGEN 0.2 mg/dL (0.2 - 1)
[2021-02-06] MEDS: LEVETIRACETAM 500MG/5ML VIAL 500 MG in SODIUM CHLORIDE 0.9% 100 ML 100 ML IV SCH ×2 (05:26→17:56)
[2021-02-06 05:33] LABS: ALBUMIN 4.1 g/dL (3.5-5.0); ANION GAP 17.6 mmol/L (8-16); CALCIUM 9.3 mg/dL (8.4-10.2); CREATININE, SERUM 1.22 mg/dL (0.57-1.11); POTASSIUM 5.6 mmol/L (3.5-5.1)
[2021-02-06] MEDS ORDERED: LEVETIRACETAM 500 MG/5 ML VIAL IV ONE ×2 (05:33→17:56)
[2021-02-06] MEDS ORDERED: SODIUM CHLORIDE 0.9% 100 ML ONE ×2 (05:34→17:57)
[2021-02-06 05:35] LABS: CREATINE KINASE MB 1.7 ng/mL (0-5.0)
[2021-02-06] MEDS ORDERED: ONDANSETRON HCL INJ 2MG/ML 2ML 2 MG/ML VIAL IV STA ×2 (05:36)
[2021-02-06 05:39] LABS: BACTERIA,URINE RARE /HPF; EPITHELIAL CELLS,URINE RARE /LPF; RBC,URINE 0-5 /HPF (0-5); WBC,URINE (MAN) 0-5 /HPF (0-5)
[2021-02-06] MEDS ORDERED: ONDANSETRON HCL INJ 2MG/ML 2ML 2 MG/ML VIAL ONE (05:46)
[2021-02-06 06:02] LABS: SALICYLATE < 5.0 mg/dL (0-30)
[2021-02-06 06:04] LABS: AMPHETAMINES SCREEN,URINE NEGATIVE (NEGATIVE); BENZODIAZEPINES SCREEN,URINE POSITIVE (NEGATIVE); PHENCYCLIDINE SCREEN,URINE NEGATIVE (NEGATIVE)
[2021-02-06] MEDS ORDERED: HALOPERIDOL LACTATE 5 MG/ML VIAL IV ONE (09:00)
[2021-02-06] MEDS: ONDANSETRON HCL INJ 2MG/ML 2ML 2 MG/ML VIAL IV PRN ×2 (09:15→14:22)
[2021-02-06] MEDS ORDERED: FENTANYL CITRATE/PF 100MCG/2 ML INJ IV ONE (09:30)
[2021-02-06] MEDS: DEPAKOTE DELAYED-RELEASE TAB 500 MG PO SCH ×2 (14:22→21:23)
[2021-02-06] MEDS ORDERED: SOD POLYSTYRENE SULFONATE SUSP 15 GM/60 ML BTL PO ONE (16:15)
[2021-02-06 20:09] VITALS: BP 162/100
[2021-02-06 20:15] VITALS: BP 162/100
[2021-02-06] MEDS ORDERED: SERTRALINE HCL 100 MG TAB PO SCH (20:15)
[2021-02-06] MEDS ORDERED: DEXTROSE 50% SYRINGE 50 ML IV PRN (20:30)
[2021-02-06] MEDS ORDERED: PERCOCET 10-321 EACH PO (20:44)
[2021-02-06] MEDS ORDERED: LISINOPRIL2.5 MG PO (20:44)
[2021-02-06] MEDS ORDERED: BUSPIRONE HCL10 MG PO (20:44)
[2021-02-06] MEDS ORDERED: METOPROLOL TART25 MG PO (20:44)
[2021-02-06] MEDS ORDERED: KEPPRA1000 M1 PO (20:44)
[2021-02-06] MEDS ORDERED: ACETAMINOPHEN 325 MG TAB PO PRN (20:45)
[2021-02-06 21:00] VITALS: BP 162/100
[2021-02-06] MEDS ORDERED: QUETIAPINE FUMARATE 100 MG TAB PO SCH (21:00)
[2021-02-06] MEDS: QUETIAPINE FUMARATE 100 MG TAB PO SCH (21:23)
[2021-02-06] MEDS: BUSPIRONE HCL 10 MG TABLET PO SCH (21:23)
[2021-02-06] MEDS: SERTRALINE HCL 100 MG TAB PO SCH (21:23)
[2021-02-06] MEDS: OXCARBAZEPINE 300 MG TAB PO SCH (21:23)
[2021-02-06] MEDS: ALPRAZOLAM 0.5 MG TAB PO PRN (21:24)
[2021-02-06] MEDS: TRAMADOL HCL 50 MG TAB PO PRN (21:24)
[2021-02-06] MEDS: INSULIN LISPRO 100 UNIT/1 ML 3ML VIAL SQ SCH (21:55)
[2021-02-07] VITALS (8 sets, daily range): BP systolic 133–190; BP diastolic 50–95
[2021-02-07] MEDS: TRAMADOL HCL 50 MG TAB PO PRN ×2 (02:35→08:11)
[2021-02-07] MEDS: ALPRAZOLAM 0.5 MG TAB PO PRN ×3 (02:35→16:19)
[2021-02-07] MEDS ORDERED: SODIUM CHLORIDE 0.9% 250ML 250 ML ONE (04:59)
[2021-02-07] MEDS ORDERED: SODIUM CHLORIDE 0.9% 100 ML ONE (05:25)
[2021-02-07] MEDS: LEVETIRACETAM 500MG/5ML VIAL 500 MG in SODIUM CHLORIDE 0.9% 100 ML 100 ML IV SCH ×2 (05:30→17:55)
[2021-02-07] MEDS ORDERED: OXYCODONE/ACETAMINOPHEN 5-325 1 EACH TABLET PO STA (05:37)
[2021-02-07] MEDS: INSULIN LISPRO 100 UNIT/1 ML 3ML VIAL SQ SCH ×4 (07:30→21:00)
[2021-02-07 07:34] LABS: BASOPHILS # (AUTO) 0.1 (0.0-0.1); BASOPHILS % 0.4 % (0.0-1.0); EOSINOPHILS # (AUTO) 0.1 (0.0-0.4); EOSINOPHILS % 0.4 % (0.0-6.0); HEMATOCRIT 41.1 % (34.2-44.1); HEMOGLOBIN 13.2 g/dL (12.0-16.0); LYMPHOCYTES # (AUTO) 3.6 (1.0-3.2); LYMPHOCYTES % 27.2 % (18.0-39.1); MEAN CORPUSCULAR HEMOGLOBIN 26.1 pg (28-32); MEAN CORPUSCULAR HGB CONC 32.1 g/dL (31-35); MEAN CORPUSCULAR VOLUME 81.4 fL (81-99); MONOCYTES % 7.6 % (4.4-11.3); NEUTROPHILS # (AUTO) 8.4 (2.1-6.9); NEUTROPHILS % 63.9 % (38.7-80.0); PLATELET COUNT 271 x10e3/uL (140-360); RED BLOOD COUNT 5.05 x10e6/uL (3.6-5.1); RED CELL DISTRIBUTION WIDTH 13.1 % (11.7-14.4)
[2021-02-07 07:53] LABS: ANION GAP 19.1 mmol/L (8-16); CALCIUM 8.5 mg/dL (8.4-10.2); CREATININE, SERUM 1.08 mg/dL (0.57-1.11); POTASSIUM 4.1 mmol/L (3.5-5.1)
[2021-02-07] MEDS: ASPIRIN 325 MG TAB EC PO SCH (08:13)
[2021-02-07] MEDS: BUSPIRONE HCL 10 MG TABLET PO SCH ×2 (08:13→17:54)
[2021-02-07] MEDS: DEPAKOTE DELAYED-RELEASE TAB 500 MG PO SCH ×3 (08:13→21:00)
[2021-02-07] MEDS: ATORVASTATIN 20 MG TAB PO SCH (08:14)
[2021-02-07] MEDS: METOPROLOL TARTRATE 25 MG TAB PO SCH ×2 (08:14→16:16)
[2021-02-07] MEDS: LISINOPRIL 2.5 MG TAB PO SCH (08:15)
[2021-02-07] MEDS: OXCARBAZEPINE 300 MG TAB PO SCH ×2 (08:15→21:00)
[2021-02-07] MEDS: SERTRALINE HCL 100 MG TAB PO SCH (08:17)
[2021-02-07] MEDS ORDERED: FUROSEMIDE 40 MG TAB PO SCH (09:00)
[2021-02-07] MEDS: INSULIN GLARGINE 100 UNITS/ML VIAL SQ SCH ×2 (09:00→17:55)
[2021-02-07] MEDS ORDERED: DULOXETINE HCL 30 MG DELAYED RELEASE PO SCH ×2 (09:00→21:00)
[2021-02-07 16:27] LABS: CHOL/HDL RATIO 3.3 (3.0-3.6)
[2021-02-07] MEDS: TRAZODONE HCL 50 MG TAB PO SCH (21:00)
[2021-02-07] MEDS: MELATONIN 5 MG TABLET PO SCH (21:00)
[2021-02-07] MEDS: QUETIAPINE FUMARATE 100 MG TAB PO SCH (21:00)
[2021-02-07] MEDS: DULOXETINE HCL 30 MG DELAYED RELEASE PO SCH (21:00)
[2021-02-08] VITALS (8 sets, daily range): BP systolic 95–161; BP diastolic 53–124
[2021-02-08] MEDS: LEVETIRACETAM 500MG/5ML VIAL 500 MG in SODIUM CHLORIDE 0.9% 100 ML 100 ML IV SCH ×2 (04:47→18:16)
[2021-02-08 05:55] LABS: BASOPHILS % 0.4 % (0.0-1.0); EOSINOPHILS # (AUTO) 0.2 (0.0-0.4); EOSINOPHILS % 2.6 % (0.0-6.0); HEMATOCRIT 35.2 % (34.2-44.1); HEMOGLOBIN 11.5 g/dL (12.0-16.0); LYMPHOCYTES # (AUTO) 2.3 (1.0-3.2); LYMPHOCYTES % 29.8 % (18.0-39.1); MEAN CORPUSCULAR HEMOGLOBIN 26.2 pg (28-32); MEAN CORPUSCULAR HGB CONC 32.7 g/dL (31-35); MEAN CORPUSCULAR VOLUME 80.2 fL (81-99); MONOCYTES # (AUTO) 0.6 (0.2-0.8); MONOCYTES % 7.2 % (4.4-11.3); NEUTROPHILS # (AUTO) 4.5 (2.1-6.9); NEUTROPHILS % 59.3 % (38.7-80.0); PLATELET COUNT 219 x10e3/uL (140-360); RED BLOOD COUNT 4.39 x10e6/uL (3.6-5.1); RED CELL DISTRIBUTION WIDTH 12.9 % (11.7-14.4)
[2021-02-08 06:10] LABS: ANION GAP 15.1 mmol/L (8-16); CALCIUM 7.7 mg/dL (8.4-10.2); CREATININE, SERUM 1.07 mg/dL (0.57-1.11); POTASSIUM 4.1 mmol/L (3.5-5.1)
[2021-02-08] MEDS: INSULIN LISPRO 100 UNIT/1 ML 3ML VIAL SQ SCH ×4 (07:30→21:00)
[2021-02-08] MEDS: ASPIRIN 325 MG TAB EC PO SCH (09:00)
[2021-02-08] MEDS: INSULIN GLARGINE 100 UNITS/ML VIAL SQ SCH ×2 (09:00→18:13)
[2021-02-08] MEDS: LISINOPRIL 2.5 MG TAB PO SCH (09:00)
[2021-02-08] MEDS: SERTRALINE HCL 100 MG TAB PO SCH (09:00)
[2021-02-08] MEDS: DULOXETINE HCL 30 MG DELAYED RELEASE PO SCH ×2 (09:00→21:00)
[2021-02-08] MEDS: DEPAKOTE DELAYED-RELEASE TAB 500 MG PO SCH ×3 (09:00→21:00)
[2021-02-08] MEDS: OXCARBAZEPINE 300 MG TAB PO SCH ×2 (09:00→21:00)
[2021-02-08] MEDS: BUSPIRONE HCL 10 MG TABLET PO SCH ×2 (09:00→18:07)
[2021-02-08] MEDS: METOPROLOL TARTRATE 25 MG TAB PO SCH ×2 (09:00→18:08)
[2021-02-08] MEDS: ATORVASTATIN 20 MG TAB PO SCH (09:00)
[2021-02-08] MEDS ORDERED: ONDANSETRON HCL 4 MG ORAL DISINTEGRATING TAB PO PRN (16:15)
[2021-02-08] MEDS: SODIUM CHLORIDE 0.9% 1000ML 1,000 ML IV SCH (18:09)
[2021-02-08] MEDS: QUETIAPINE FUMARATE 100 MG TAB PO SCH (21:00)
[2021-02-08] MEDS: MELATONIN 5 MG TABLET PO SCH (21:00)
[2021-02-08] MEDS: TRAZODONE HCL 50 MG TAB PO SCH (21:00)
[2021-02-09] VITALS (8 sets, daily range): BP systolic 110–156; BP diastolic 54–70
[2021-02-09] MEDS: SODIUM CHLORIDE 0.9% 1000ML 1,000 ML IV SCH ×2 (04:00→14:00)
[2021-02-09] MEDS: LEVETIRACETAM 500MG/5ML VIAL 500 MG in SODIUM CHLORIDE 0.9% 100 ML 100 ML IV SCH ×2 (05:00→16:34)
[2021-02-09 07:14] LABS: ANION GAP 16.7 mmol/L (8-16); CALCIUM 7.9 mg/dL (8.4-10.2); CREATININE, SERUM 1.18 mg/dL (0.57-1.11); POTASSIUM 4.7 mmol/L (3.5-5.1)
[2021-02-09] MEDS: INSULIN LISPRO 100 UNIT/1 ML 3ML VIAL SQ SCH ×4 (07:30→21:00)
[2021-02-09] MEDS: METOPROLOL TARTRATE 25 MG TAB PO SCH ×2 (09:06→16:36)
[2021-02-09] MEDS: DEPAKOTE DELAYED-RELEASE TAB 500 MG PO SCH ×3 (09:06→21:00)
[2021-02-09] MEDS: LISINOPRIL 2.5 MG TAB PO SCH (09:06)
[2021-02-09] MEDS: OXCARBAZEPINE 300 MG TAB PO SCH ×2 (09:06→21:00)
[2021-02-09] MEDS: BUSPIRONE HCL 10 MG TABLET PO SCH ×2 (09:06→16:34)
[2021-02-09] MEDS: ASPIRIN 325 MG TAB EC PO SCH (09:06)
[2021-02-09] MEDS: ATORVASTATIN 20 MG TAB PO SCH (09:06)
[2021-02-09] MEDS: DULOXETINE HCL 30 MG DELAYED RELEASE PO SCH ×2 (09:06→21:00)
[2021-02-09] MEDS: SERTRALINE HCL 100 MG TAB PO SCH (09:07)
[2021-02-09] MEDS: INSULIN GLARGINE 100 UNITS/ML VIAL SQ SCH ×2 (09:07→16:37)
[2021-02-09] MEDS: QUETIAPINE FUMARATE 100 MG TAB PO SCH (21:00)
[2021-02-09] MEDS: MELATONIN 5 MG TABLET PO SCH (21:00)
[2021-02-09] MEDS: SODIUM CHLORIDE 1 GM TAB PO SCH (21:00)
[2021-02-09] MEDS: TRAZODONE HCL 50 MG TAB PO SCH (21:00)
[2021-02-10] VITALS (8 sets, daily range): BP systolic 101–152; BP diastolic 60–82
[2021-02-10] MEDS: LEVETIRACETAM 500MG/5ML VIAL 500 MG in SODIUM CHLORIDE 0.9% 100 ML 100 ML IV SCH ×2 (05:00→17:08)
[2021-02-10] MEDS: INSULIN LISPRO 100 UNIT/1 ML 3ML VIAL SQ SCH ×4 (07:30→21:50)
[2021-02-10] MEDS: BUSPIRONE HCL 10 MG TABLET PO SCH ×2 (08:46→17:07)
[2021-02-10] MEDS: ASPIRIN 325 MG TAB EC PO SCH (08:46)
[2021-02-10] MEDS: METOPROLOL TARTRATE 25 MG TAB PO SCH ×2 (08:47→17:07)
[2021-02-10] MEDS: LISINOPRIL 2.5 MG TAB PO SCH (08:47)
[2021-02-10] MEDS: DULOXETINE HCL 30 MG DELAYED RELEASE PO SCH ×2 (08:47→21:29)
[2021-02-10] MEDS: ATORVASTATIN 20 MG TAB PO SCH (08:47)
[2021-02-10] MEDS: DEPAKOTE DELAYED-RELEASE TAB 500 MG PO SCH ×3 (08:47→21:29)
[2021-02-10] MEDS: SODIUM CHLORIDE 1 GM TAB PO SCH ×3 (08:48→21:28)
[2021-02-10] MEDS: OXCARBAZEPINE 300 MG TAB PO SCH ×2 (08:48→21:30)
[2021-02-10] MEDS: SERTRALINE HCL 100 MG TAB PO SCH (08:48)
[2021-02-10] MEDS: INSULIN GLARGINE 100 UNITS/ML VIAL SQ SCH ×2 (09:00→17:23)
[2021-02-10] MEDS: SODIUM CHLORIDE 0.9% 1000ML 1,000 ML IV SCH ×2 (10:00)
[2021-02-10] MEDS: TRAZODONE HCL 50 MG TAB PO SCH (21:28)
[2021-02-10] MEDS: QUETIAPINE FUMARATE 100 MG TAB PO SCH (21:30)
[2021-02-10] MEDS: MELATONIN 5 MG TABLET PO SCH (21:30)
[2021-02-11] VITALS (7 sets, daily range): BP systolic 94–148; BP diastolic 56–69
[2021-02-11] MEDS: SODIUM CHLORIDE 0.9% 1000ML 1,000 ML IV SCH ×2 (01:10→14:03)
[2021-02-11] MEDS: LEVETIRACETAM 500MG/5ML VIAL 500 MG in SODIUM CHLORIDE 0.9% 100 ML 100 ML IV SCH ×2 (05:00→17:55)
[2021-02-11] MEDS: INSULIN LISPRO 100 UNIT/1 ML 3ML VIAL SQ SCH ×4 (07:30→21:00)
[2021-02-11] MEDS: SODIUM CHLORIDE 1 GM TAB PO SCH ×3 (09:28→21:58)
[2021-02-11] MEDS: ATORVASTATIN 20 MG TAB PO SCH (09:28)
[2021-02-11] MEDS: ASPIRIN 325 MG TAB EC PO SCH (09:28)
[2021-02-11] MEDS: DULOXETINE HCL 30 MG DELAYED RELEASE PO SCH ×2 (09:28→21:55)
[2021-02-11] MEDS: OXCARBAZEPINE 300 MG TAB PO SCH ×2 (09:28→21:58)
[2021-02-11] MEDS: SERTRALINE HCL 100 MG TAB PO SCH (09:28)
[2021-02-11] MEDS: DEPAKOTE DELAYED-RELEASE TAB 500 MG PO SCH ×3 (09:28→21:57)
[2021-02-11] MEDS: INSULIN GLARGINE 100 UNITS/ML VIAL SQ SCH ×2 (09:28→16:32)
[2021-02-11] MEDS: BUSPIRONE HCL 10 MG TABLET PO SCH ×2 (09:28→16:30)
[2021-02-11] MEDS: LISINOPRIL 2.5 MG TAB PO SCH (09:28)
[2021-02-11] MEDS: METOPROLOL TARTRATE 25 MG TAB PO SCH ×2 (09:28→16:31)
[2021-02-11 11:19] LABS: BASOPHILS % 0.3 % (0.0-1.0); EOSINOPHILS % 0.8 % (0.0-6.0); HEMATOCRIT 36.1 % (34.2-44.1); HEMOGLOBIN 11.7 g/dL (12.0-16.0); LYMPHOCYTES # (AUTO) 0.7 (1.0-3.2); LYMPHOCYTES % 18.5 % (18.0-39.1); MEAN CORPUSCULAR HEMOGLOBIN 26.4 pg (28-32); MEAN CORPUSCULAR HGB CONC 32.4 g/dL (31-35); MEAN CORPUSCULAR VOLUME 81.5 fL (81-99); MONOCYTES # (AUTO) 0.4 (0.2-0.8); MONOCYTES % 10.9 % (4.4-11.3); NEUTROPHILS # (AUTO) 2.6 (2.1-6.9); NEUTROPHILS % 68.7 % (38.7-80.0); PLATELET COUNT 176 x10e3/uL (140-360); RED BLOOD COUNT 4.43 x10e6/uL (3.6-5.1); RED CELL DISTRIBUTION WIDTH 13.1 % (11.7-14.4)
[2021-02-11 11:36] LABS: ANION GAP 14.6 mmol/L (8-16); BLOOD UREA NITROGEN 17 mg/dL (7-26); BUN/CREATININE RATIO 20 (6-25); CALCIUM 8.4 mg/dL (8.4-10.2); CARBON DIOXIDE 22 mmol/L (22-29); CHLORIDE 104 mmol/L (98-107); CREATININE, SERUM 0.83 mg/dL (0.57-1.11); EST GLOMERULAR FILTRATION RATE > 60 ML/MIN (60-); GLUCOSE 208 mg/dL (74-118); POTASSIUM 4.6 mmol/L (3.5-5.1); SODIUM 136 mmol/L (136-145)
[2021-02-11] MEDS: MELATONIN 5 MG TABLET PO SCH (21:56)
[2021-02-11] MEDS: TRAZODONE HCL 50 MG TAB PO SCH (21:56)
[2021-02-11] MEDS: QUETIAPINE FUMARATE 100 MG TAB PO SCH (21:56)
[2021-02-12] MEDS: SODIUM CHLORIDE 0.9% 1000ML 1,000 ML IV SCH ×2 (02:00→12:17)
[2021-02-12 02:33] VITALS: BP_SYST 148; BP_DIAS 59; BP_DIAS 61
[2021-02-12] MEDS: LEVETIRACETAM 500MG/5ML VIAL 500 MG in SODIUM CHLORIDE 0.9% 100 ML 100 ML IV SCH ×2 (05:29→16:54)
[2021-02-12] MEDS: INSULIN LISPRO 100 UNIT/1 ML 3ML VIAL SQ SCH ×3 (07:30→16:30)
[2021-02-12 08:14] VITALS: BP 147/79
[2021-02-12 08:18] VITALS: BP 147/79
[2021-02-12] MEDS: INSULIN GLARGINE 100 UNITS/ML VIAL SQ SCH ×2 (09:00→16:47)
[2021-02-12] MEDS: ATORVASTATIN 20 MG TAB PO SCH (09:31)
[2021-02-12] MEDS: METOPROLOL TARTRATE 25 MG TAB PO SCH ×2 (09:31→16:47)
[2021-02-12] MEDS: DEPAKOTE DELAYED-RELEASE TAB 500 MG PO SCH ×2 (09:31→16:46)
[2021-02-12] MEDS: DULOXETINE HCL 30 MG DELAYED RELEASE PO SCH (09:31)
[2021-02-12] MEDS: BUSPIRONE HCL 10 MG TABLET PO SCH ×2 (09:31→16:46)
[2021-02-12] MEDS: ASPIRIN 325 MG TAB EC PO SCH (09:31)
[2021-02-12] MEDS: OXCARBAZEPINE 300 MG TAB PO SCH (09:32)
[2021-02-12] MEDS: SERTRALINE HCL 100 MG TAB PO SCH (09:32)
[2021-02-12] MEDS: SODIUM CHLORIDE 1 GM TAB PO SCH ×2 (09:32→16:46)
[2021-02-12] MEDS: LISINOPRIL 2.5 MG TAB PO SCH (09:32)
[2021-02-12 11:58] VITALS: BP 165/85
[2021-02-12 16:21] VITALS: BP 156/76
== END 2021-02-12 18:55 | DRG 101 ==
LOC: ER 05:15 → ERHOLD 08:42 → MED/SURG3 20:07 → OBSVTOIN 02-07 09:47 → INTOOBSV 02-07 09:47 → OBSVTOIN 02-07 09:49
PROVIDERS: ADMIT Internal Medicine; ATTEND Internal Medicine
DX: G40.909 Epilepsy, unspecified, not intractable, without status epilepticus (principal); G93.40 Encephalopathy, unspecified; N17.9 Acute kidney failure, unspecified; E87.1 Hypo-osmolality and hyponatremia; E11.9 Type 2 diabetes mellitus without complications; F31.9 Bipolar disorder, unspecified; R41.82 Altered mental status, unspecified; I10 Essential (primary) hypertension
CPT/HCPCS: 36415; 70450; 71045; 80048; 80053; 80061; 80307; 80320; 80329; 81001; 82140; 82542; 82550; 82553; 82948; 83036; 83880; 84443; 84484; 85025; 93005; 97139; 99284; G0378; J1630; J1815; J2405; J3010; J7030; J7050; U0002

== ENCOUNTER 2022-10-15 11:05 | Inpatient (IN) | payer MEDICARE ==
[~2022-10-15] VITALS: Ht 170.2 cm; Wt 81.6 kg
[~2022-10-15 11:05] MED LIST changes: +BUSPIRONE HCL10 MG PO; +KEPPRA1000 M1 PO; +LISINOPRIL2.5 MG PO; +METOPROLOL TART25 MG PO; +PERCOCET 10-321 EACH PO
[2022-10-15] MEDS ORDERED: SODIUM CHLORIDE 0.9% 1000ML 1,000 ML IV ONE (11:15)
[2022-10-15 11:42] LABS: BASOPHILS % 0.2 % (0.0-1.0); EOSINOPHILS % 0.5 % (0.0-6.0); HEMATOCRIT 35.5 % (34.2-44.1); LYMPHOCYTES # (AUTO) 3.2 (1.0-3.2); LYMPHOCYTES % 37.9 % (18.0-39.1); MEAN CORPUSCULAR HEMOGLOBIN 24.1 pg (28-32); MEAN CORPUSCULAR HGB CONC 28.2 g/dL (31-35); MEAN CORPUSCULAR VOLUME 85.5 fL (81-99); MONOCYTES # (AUTO) 1.6 (0.2-0.8); MONOCYTES % 19.2 % (4.4-11.3); NEUTROPHILS # (AUTO) 3.5 (2.1-6.9); NEUTROPHILS % 41.3 % (38.7-80.0); PLATELET COUNT 199 x10e3/uL (140-360); RED BLOOD COUNT 4.15 x10e6/uL (3.6-5.1); RED CELL DISTRIBUTION WIDTH 15.2 % (11.7-14.4)
[2022-10-15 12:02] LABS: CLARITY,URINE SL CLOUDY (CLEAR); COLOR,URINE YELLOW (YELLOW); LEUKOCYTE ESTERASE ,URINE MODERATE (NEGATIVE); NITRITE,URINE NEGATIVE (NEGATIVE); PROTEIN,URINE DIPSTICK 2+ (NEGATIVE)
[2022-10-15 12:03] LABS: ALBUMIN 2.4 g/dL (3.5-5.0); ALBUMIN/GLOBULIN RATIO 0.5 (0.8-2.0); ANION GAP 15.1 mmol/L (8-16); CREATININE, SERUM 1.06 mg/dL (0.57-1.11); POTASSIUM 4.1 mmol/L (3.5-5.1)
[2022-10-15 12:03] LABS: KETONES,URINE TRACE (NEGATIVE); URINE UROBILINOGEN 2 mg/dL (0.2 - 1)
[2022-10-15] MEDS: Vancomycin IV 1 GM in SODIUM CHLORIDE 0.9% 250ML 250 ML IV SCH ×2 (12:11→22:17)
[2022-10-15 12:18] LABS: WBC,URINE (MAN) >50 /HPF (0-5)
[2022-10-15 12:19] LABS: BACTERIA,URINE MODERATE /HPF; EPITHELIAL CELLS,URINE MODERATE /LPF
[2022-10-15 12:20] LABS: YEAST,URINE MODERATE
[2022-10-15] MEDS ORDERED: ONDANSETRON HCL INJ 2MG/ML 2ML 2 MG/ML VIAL IV PRN (13:00)
[2022-10-15] MEDS ORDERED: TRAZODONE HCL50 MG PO (13:34)
[2022-10-15] MEDS ORDERED: ASPIRIN EC81 MG PO (13:34)
[2022-10-15] MEDS ORDERED: VOLTAREN ARTHRI20 GM TOP (13:34)
[2022-10-15] MEDS ORDERED: HYDROCODON-ACE1 EA12 PO (13:34)
[2022-10-15] MEDS ORDERED: HUMULIN R100 UNIT/2 INJ (13:34)
[2022-10-15] MEDS ORDERED: DEPAKOTE ER500 MG PO (13:34)
[2022-10-15] MEDS ORDERED: AMLODIPINE BESY10 MG PO (13:34)
[2022-10-15] MEDS ORDERED: LEVEMIR FL100 UNIT/1 SC (13:34)
[2022-10-15] MEDS: SODIUM CHLORIDE 0.9% 1000ML 1,000 ML IV SCH (15:12)
[2022-10-15] MEDS ORDERED: DEXTROSE 50% SYRINGE 50 ML IV PRN (17:30)
[2022-10-15 20:30] VITALS: BP 112/96
[2022-10-15] MEDS: INSULIN REGULAR, HUMAN 100 UNIT/1 ML SQ SCH (21:00)
[2022-10-15 21:26] VITALS: BP 134/84
[2022-10-15] MEDS: TRAZODONE HCL 50 MG TAB PO SCH (22:14)
[2022-10-15] MEDS: DULOXETINE HCL 30 MG DELAYED RELEASE PO SCH (22:14)
[2022-10-15] MEDS: DEPAKOTE DELAYED-RELEASE TAB 500 MG PO SCH (22:14)
[2022-10-16] VITALS (8 sets, daily range): BP systolic 103–140; BP diastolic 51–79
[2022-10-16 05:29] LABS: BASOPHILS % 0.3 % (0.0-1.0); EOSINOPHILS % 0.1 % (0.0-6.0); HEMATOCRIT 37.1 % (34.2-44.1); HEMOGLOBIN 10.4 g/dL (12.0-16.0); LYMPHOCYTES # (AUTO) 2.2 (1.0-3.2); LYMPHOCYTES % 32.6 % (18.0-39.1); MEAN CORPUSCULAR HEMOGLOBIN 24.4 pg (28-32); MEAN CORPUSCULAR VOLUME 86.9 fL (81-99); MONOCYTES # (AUTO) 1.6 (0.2-0.8); MONOCYTES % 23.4 % (4.4-11.3); NEUTROPHILS # (AUTO) 2.9 (2.1-6.9); PLATELET COUNT 159 x10e3/uL (140-360); RED BLOOD COUNT 4.27 x10e6/uL (3.6-5.1); RED CELL DISTRIBUTION WIDTH 14.8 % (11.7-14.4)
[2022-10-16] MEDS: SODIUM CHLORIDE 0.9% 1000ML 1,000 ML IV SCH ×2 (05:44→15:44)
[2022-10-16 05:56] LABS: ALBUMIN 2.3 g/dL (3.5-5.0); ALBUMIN/GLOBULIN RATIO 0.5 (0.8-2.0); ANION GAP 14.1 mmol/L (8-16); CALCIUM 8.6 mg/dL (8.4-10.2); CREATININE, SERUM 0.87 mg/dL (0.57-1.11); POTASSIUM 4.1 mmol/L (3.5-5.1)
[2022-10-16] MEDS: INSULIN REGULAR, HUMAN 100 UNIT/1 ML SQ SCH ×4 (08:30→22:16)
[2022-10-16 08:48] LABS: LYMPHOCYTES % (MANUAL) 33 % (19-48); MONOCYTES % (MANUAL) 14 % (3.4-9.0); MYELOCYTES % (MANUAL) 1 % (0-0); NEUTROPHILS % (MANUAL) 52 % (40-74); PLATELET ESTIMATE ADEQUATE; PLATELET MORPHOLOGY COMMENT NORMAL; RBC MORPHOLOGY COMMENT NORMAL
[2022-10-16] MEDS: ASPIRIN 81 MG ENTERIC COATED PO SCH (08:53)
[2022-10-16] MEDS: BUSPIRONE HCL 10 MG TABLET PO SCH ×2 (08:54→16:30)
[2022-10-16] MEDS: DULOXETINE HCL 30 MG DELAYED RELEASE PO SCH ×2 (08:54→21:48)
[2022-10-16] MEDS: DEPAKOTE DELAYED-RELEASE TAB 500 MG PO SCH ×2 (08:54→21:49)
[2022-10-16] MEDS: HYDROCODONE/APAP 7.5MG-325MG 1 EA TAB PO PRN ×2 (08:54→17:10)
[2022-10-16] MEDS: ATORVASTATIN 20 MG TAB PO SCH (08:55)
[2022-10-16] MEDS: METOPROLOL TARTRATE 25 MG TAB PO SCH ×2 (08:56→16:30)
[2022-10-16] MEDS: AMLODIPINE BESYLATE 10 MG TAB PO SCH (09:00)
[2022-10-16] MEDS: Vancomycin IV 1 GM in SODIUM CHLORIDE 0.9% 250ML 250 ML IV SCH (09:33)
[2022-10-16] MEDS ORDERED: ONDANSETRON HCL 4 MG ORAL DISINTEGRATING TAB PO PRN (12:45)
[2022-10-16] MEDS: TRAZODONE HCL 50 MG TAB PO SCH (21:55)
[2022-10-17] VITALS (41 sets, daily range): BP systolic 88–157; BP diastolic 51–85
[2022-10-17] MEDS: SODIUM CHLORIDE 0.9% 1000ML 1,000 ML IV SCH ×2 (05:42→20:17)
[2022-10-17] MEDS: INSULIN REGULAR, HUMAN 100 UNIT/1 ML SQ SCH ×4 (07:30→21:16)
[2022-10-17 08:22] LABS: ABG PH 7.34 (7.35-7.45)
[2022-10-17 08:23] LABS: ABG HCO3 25 mmol/L (22-26); ABG PCO2 46 mmHg (35-45); ABG PO2 69 mmHg (80-105); ABG TCO2 25
[2022-10-17 08:36] LABS: BASOPHILS % 0.2 % (0.0-1.0); EOSINOPHILS % 0.2 % (0.0-6.0); HEMATOCRIT 40.3 % (34.2-44.1); HEMOGLOBIN 11.4 g/dL (12.0-16.0); LYMPHOCYTES # (AUTO) 3.1 (1.0-3.2); LYMPHOCYTES % 29.6 % (18.0-39.1); MEAN CORPUSCULAR HEMOGLOBIN 24.3 pg (28-32); MEAN CORPUSCULAR HGB CONC 28.3 g/dL (31-35); MEAN CORPUSCULAR VOLUME 85.7 fL (81-99); MONOCYTES % 9.5 % (4.4-11.3); NEUTROPHILS # (AUTO) 6.3 (2.1-6.9); PLATELET COUNT 149 x10e3/uL (140-360); RED CELL DISTRIBUTION WIDTH 14.6 % (11.7-14.4)
[2022-10-17 08:56] LABS: ANION GAP 14.8 mmol/L (8-16); CALCIUM 8.8 mg/dL (8.4-10.2); CREATININE, SERUM 0.77 mg/dL (0.57-1.11); POTASSIUM 3.8 mmol/L (3.5-5.1)
[2022-10-17] MEDS: DULOXETINE HCL 30 MG DELAYED RELEASE PO SCH ×2 (09:48→21:00)
[2022-10-17] MEDS: METOPROLOL TARTRATE 25 MG TAB PO SCH ×2 (09:49→17:00)
[2022-10-17] MEDS: AMLODIPINE BESYLATE 10 MG TAB PO SCH (09:49)
[2022-10-17] MEDS: DEPAKOTE DELAYED-RELEASE TAB 500 MG PO SCH ×2 (09:49→21:00)
[2022-10-17] MEDS: ATORVASTATIN 20 MG TAB PO SCH (09:50)
[2022-10-17] MEDS: ASPIRIN 81 MG ENTERIC COATED PO SCH (09:50)
[2022-10-17] MEDS: BUSPIRONE HCL 10 MG TABLET PO SCH ×2 (09:50→17:00)
[2022-10-17] MEDS: BALSAM PERU/CASTOR OIL 60 GM OINT...G. TP SCH (09:51)
[2022-10-17] MEDS ORDERED: DEXAMETHASONE SOD PHOS INJ 4 MG/ML SDV IV SCH (10:00)
[2022-10-17] MEDS ORDERED: SODIUM CHLORIDE 0.9% 100 ML ONE (10:13)
[2022-10-17] MEDS ORDERED: REMDESIVIR 100MG 200 MG in SODIUM CHLORIDE 0.9% 100 ML IV ONE (10:30)
[2022-10-17] MEDS ORDERED: ALBUTEROL/IPRATROPIUM 3 ML NEB NEB SCH (11:00)
[2022-10-17] MEDS ORDERED: FLUCONAZOLE 100 MG/NS 50 ML 50 ML IV SCH (12:00)
[2022-10-17] MEDS ORDERED: ACETAMINOPHEN 1000 MG/100 ML IV ONE (12:00)
[2022-10-17] MEDS: FUROSEMIDE INJ 10 MG/ML 4 ML VIAL IV SCH ×2 (13:29→21:14)
[2022-10-17 14:07] LABS: CREATINE KINASE MB 2.2 ng/mL (0-5.0)
[2022-10-17] MEDS: LEVALBUTEROL HCL SOLN NEBU 0.63 MG/3 ML NEB INH SCH ×2 (15:00→20:20)
[2022-10-17] MEDS: IPRATROPIUM BROMIDE 0.02% 2.5 ML NEB NEB SCH ×2 (15:00→20:20)
[2022-10-17] MEDS: ALBUTEROL/IPRATROPIUM 3 ML NEB NEB PRN (15:22)
[2022-10-17] MEDS: LEVETIRACETAM 500 MG TAB PO SCH (17:00)
[2022-10-17] MEDS ORDERED: INSULIN GLARGINE 100 UNITS/ML VIAL SQ SCH (17:00)
[2022-10-17] MEDS: METHYLPREDNISOLONE SOD SUCC 40 MG/ML VIAL 1ML IV SCH (20:16)
[2022-10-17] MEDS: TRAZODONE HCL 50 MG TAB PO SCH (21:00)
[2022-10-18] VITALS (42 sets, daily range): BP systolic 76–150; BP diastolic 38–83
[2022-10-18] MEDS: IPRATROPIUM BROMIDE 0.02% 2.5 ML NEB NEB SCH ×7 (04:40→23:10)
[2022-10-18] MEDS: LEVALBUTEROL HCL SOLN NEBU 0.63 MG/3 ML NEB INH SCH ×7 (04:40→23:10)
[2022-10-18] MEDS: FUROSEMIDE INJ 10 MG/ML 4 ML VIAL IV SCH ×3 (05:32→22:33)
[2022-10-18] MEDS: INSULIN REGULAR, HUMAN 100 UNIT/1 ML SQ SCH ×4 (07:30→21:01)
[2022-10-18 07:37] LABS: HEMATOCRIT 41.2 % (34.2-44.1); HEMOGLOBIN 11.6 g/dL (12.0-16.0); LYMPHOCYTES # (AUTO) 1.3 (1.0-3.2); LYMPHOCYTES % 15.7 % (18.0-39.1); MEAN CORPUSCULAR HEMOGLOBIN 24.2 pg (28-32); MEAN CORPUSCULAR HGB CONC 28.2 g/dL (31-35); MONOCYTES # (AUTO) 0.4 (0.2-0.8); MONOCYTES % 4.8 % (4.4-11.3); NEUTROPHILS # (AUTO) 6.6 (2.1-6.9); NEUTROPHILS % 79.1 % (38.7-80.0); PLATELET COUNT 128 x10e3/uL (140-360); RED BLOOD COUNT 4.79 x10e6/uL (3.6-5.1); RED CELL DISTRIBUTION WIDTH 14.6 % (11.7-14.4)
[2022-10-18 07:55] LABS: ANION GAP 15.9 mmol/L (8-16); CALCIUM 9.2 mg/dL (8.4-10.2); CREATININE, SERUM 0.76 mg/dL (0.57-1.11); POTASSIUM 3.9 mmol/L (3.5-5.1)
[2022-10-18] MEDS: INSULIN GLARGINE 100 UNITS/ML VIAL SQ SCH ×2 (08:30→17:11)
[2022-10-18] MEDS: METHYLPREDNISOLONE SOD SUCC 40 MG/ML VIAL 1ML IV SCH ×2 (08:47→20:35)
[2022-10-18] MEDS: SODIUM CHLORIDE 0.9% 1000ML 1,000 ML IV SCH ×2 (08:48→20:38)
[2022-10-18] MEDS: CEFTRIAXONE 2 GM in SODIUM CHLORIDE 0.9% 100 ML IV SCH (08:48)
[2022-10-18] MEDS: BALSAM PERU/CASTOR OIL 60 GM OINT...G. TP SCH (08:48)
[2022-10-18] MEDS: ATORVASTATIN 20 MG TAB PO SCH (12:14)
[2022-10-18] MEDS: METOPROLOL TARTRATE 25 MG TAB PO SCH ×2 (12:14→20:37)
[2022-10-18] MEDS: LEVETIRACETAM 500 MG TAB PO SCH ×2 (12:14→20:40)
[2022-10-18] MEDS: BUSPIRONE HCL 10 MG TABLET PO SCH ×2 (12:14→20:36)
[2022-10-18] MEDS: AMLODIPINE BESYLATE 10 MG TAB PO SCH (12:15)
[2022-10-18] MEDS: DEPAKOTE DELAYED-RELEASE TAB 500 MG PO SCH ×2 (12:15→20:36)
[2022-10-18] MEDS: ASPIRIN 81 MG ENTERIC COATED PO SCH (12:15)
[2022-10-18] MEDS: DULOXETINE HCL 30 MG DELAYED RELEASE PO SCH ×2 (12:15→20:38)
[2022-10-18] MEDS: REMDESIVIR 100MG 100 MG in SODIUM CHLORIDE 0.9% 100 ML IV SCH (13:26)
[2022-10-18] MEDS: HYDROCODONE/APAP 7.5MG-325MG 1 EA TAB PO PRN (17:17)
[2022-10-18] MEDS: ENOXAPARIN 30 MG/0.3 ML SYR SC SCH (20:35)
[2022-10-18] MEDS: TRAZODONE HCL 50 MG TAB PO SCH (20:36)
[2022-10-19] VITALS (42 sets, daily range): BP systolic 97–147; BP diastolic 48–86
[2022-10-19] MEDS: IPRATROPIUM BROMIDE 0.02% 2.5 ML NEB NEB SCH ×6 (03:15→23:40)
[2022-10-19] MEDS: LEVALBUTEROL HCL SOLN NEBU 0.63 MG/3 ML NEB INH SCH ×6 (03:15→23:40)
[2022-10-19] MEDS: FUROSEMIDE INJ 10 MG/ML 4 ML VIAL IV SCH ×3 (05:31→21:50)
[2022-10-19 08:39] LABS: BASOPHILS % 0.1 % (0.0-1.0); HEMATOCRIT 38.4 % (34.2-44.1); LYMPHOCYTES # (AUTO) 1.1 (1.0-3.2); LYMPHOCYTES % 15.3 % (18.0-39.1); MEAN CORPUSCULAR HGB CONC 28.6 g/dL (31-35); MEAN CORPUSCULAR VOLUME 83.8 fL (81-99); MONOCYTES # (AUTO) 0.2 (0.2-0.8); MONOCYTES % 2.8 % (4.4-11.3); NEUTROPHILS % 80.9 % (38.7-80.0); PLATELET COUNT 152 x10e3/uL (140-360); RED BLOOD COUNT 4.58 x10e6/uL (3.6-5.1); RED CELL DISTRIBUTION WIDTH 14.7 % (11.7-14.4)
[2022-10-19] MEDS: INSULIN REGULAR, HUMAN 100 UNIT/1 ML SQ SCH ×4 (08:47→22:03)
[2022-10-19] MEDS: ATORVASTATIN 20 MG TAB PO SCH (08:56)
[2022-10-19] MEDS: AMLODIPINE BESYLATE 10 MG TAB PO SCH (08:56)
[2022-10-19] MEDS: DULOXETINE HCL 30 MG DELAYED RELEASE PO SCH ×2 (08:56→21:50)
[2022-10-19] MEDS: BUSPIRONE HCL 10 MG TABLET PO SCH ×2 (08:56→21:50)
[2022-10-19] MEDS: LEVETIRACETAM 500 MG TAB PO SCH ×2 (08:57→21:50)
[2022-10-19] MEDS: ASPIRIN 81 MG ENTERIC COATED PO SCH (08:57)
[2022-10-19] MEDS: METHYLPREDNISOLONE SOD SUCC 40 MG/ML VIAL 1ML IV SCH ×2 (08:57→21:50)
[2022-10-19] MEDS: CEFTRIAXONE 2 GM in SODIUM CHLORIDE 0.9% 100 ML IV SCH (08:57)
[2022-10-19] MEDS: DEPAKOTE DELAYED-RELEASE TAB 500 MG PO SCH ×2 (08:58→21:50)
[2022-10-19] MEDS: METOPROLOL TARTRATE 25 MG TAB PO SCH (08:58)
[2022-10-19] MEDS: ENOXAPARIN 30 MG/0.3 ML SYR SC SCH ×2 (08:59→21:50)
[2022-10-19] MEDS: INSULIN GLARGINE 100 UNITS/ML VIAL SQ SCH ×2 (08:59→16:37)
[2022-10-19 09:14] LABS: ALANINE AMINOTRANSFERASE 11 IU/L (0-55); ALBUMIN 2.2 g/dL (3.5-5.0); ALBUMIN/GLOBULIN RATIO 0.5 (0.8-2.0); ALKALINE PHOSPHATASE 36 IU/L (40-150); ANION GAP 16.4 mmol/L (8-16); BLOOD UREA NITROGEN 26 mg/dL (7-26); BUN/CREATININE RATIO 32 (6-25); CALCIUM 8.6 mg/dL (8.4-10.2); CARBON DIOXIDE 23 mmol/L (22-29); CHLORIDE 103 mmol/L (98-107); CREATININE, SERUM 0.81 mg/dL (0.57-1.11); GLUCOSE 263 mg/dL (74-118); POTASSIUM 3.4 mmol/L (3.5-5.1); SODIUM 139 mmol/L (136-145)
[2022-10-19 09:36] LABS: CHOL/HDL RATIO 3.2 (3.0-3.6)
[2022-10-19] MEDS: BALSAM PERU/CASTOR OIL 60 GM OINT...G. TP SCH (10:45)
[2022-10-19] MEDS ORDERED: SODIUM CHLORIDE 0.9% 250ML 250 ML ONE (11:54)
[2022-10-19] MEDS: REMDESIVIR 100MG 100 MG in SODIUM CHLORIDE 0.9% 100 ML IV SCH (13:31)
[2022-10-19] MEDS: HYDROCODONE/APAP 7.5MG-325MG 1 EA TAB PO PRN (13:44)
[2022-10-19] MEDS ORDERED: BENZONATATE 100 MG CAP PO PRN (18:00)
[2022-10-19] MEDS: TRAZODONE HCL 50 MG TAB PO SCH (21:50)
[2022-10-19] MEDS: GUAIFENESIN/DEXTROMETHORPHAN LIQD 5 ML UDC PO SCH (21:50)
[2022-10-20] VITALS (8 sets, daily range): BP systolic 118–154; BP diastolic 53–83
[2022-10-20] MEDS: IPRATROPIUM BROMIDE 0.02% 2.5 ML NEB NEB SCH ×6 (03:05→23:35)
[2022-10-20] MEDS: LEVALBUTEROL HCL SOLN NEBU 0.63 MG/3 ML NEB INH SCH ×6 (03:05→23:35)
[2022-10-20 05:47] LABS: BASOPHILS % 0.2 % (0.0-1.0); HEMATOCRIT 36.1 % (34.2-44.1); HEMOGLOBIN 10.3 g/dL (12.0-16.0); LYMPHOCYTES % 17.9 % (18.0-39.1); MEAN CORPUSCULAR HEMOGLOBIN 24.3 pg (28-32); MEAN CORPUSCULAR HGB CONC 28.5 g/dL (31-35); MEAN CORPUSCULAR VOLUME 85.1 fL (81-99); MONOCYTES # (AUTO) 0.1 (0.2-0.8); MONOCYTES % 1.7 % (4.4-11.3); NEUTROPHILS # (AUTO) 4.2 (2.1-6.9); NEUTROPHILS % 78.9 % (38.7-80.0); PLATELET COUNT 136 x10e3/uL (140-360); RED BLOOD COUNT 4.24 x10e6/uL (3.6-5.1); RED CELL DISTRIBUTION WIDTH 14.7 % (11.7-14.4)
[2022-10-20 05:58] LABS: ALBUMIN/GLOBULIN RATIO 0.5 (0.8-2.0); ANION GAP 18.4 mmol/L (8-16); CALCIUM 8.4 mg/dL (8.4-10.2); CREATININE, SERUM 0.9 mg/dL (0.57-1.11); POTASSIUM 3.4 mmol/L (3.5-5.1)
[2022-10-20] MEDS ORDERED: POTASSIUM CHLORIDE 20 MEQ TAB CR PO STA (06:35)
[2022-10-20] MEDS: GUAIFENESIN/DEXTROMETHORPHAN LIQD 5 ML UDC PO SCH ×3 (06:43→21:12)
[2022-10-20] MEDS: FUROSEMIDE INJ 10 MG/ML 4 ML VIAL IV SCH ×3 (06:43→21:16)
[2022-10-20] MEDS: INSULIN REGULAR, HUMAN 100 UNIT/1 ML SQ SCH ×4 (08:16→21:30)
[2022-10-20] MEDS: ASPIRIN 81 MG ENTERIC COATED PO SCH (08:54)
[2022-10-20] MEDS: DULOXETINE HCL 30 MG DELAYED RELEASE PO SCH ×2 (08:56→21:12)
[2022-10-20] MEDS: LEVETIRACETAM 500 MG TAB PO SCH ×2 (08:56→21:14)
[2022-10-20] MEDS: HYDROCODONE/APAP 7.5MG-325MG 1 EA TAB PO PRN ×2 (08:56→15:01)
[2022-10-20] MEDS: ATORVASTATIN 20 MG TAB PO SCH (08:57)
[2022-10-20] MEDS: AMLODIPINE BESYLATE 10 MG TAB PO SCH (08:58)
[2022-10-20] MEDS: BUSPIRONE HCL 10 MG TABLET PO SCH ×2 (08:58→21:13)
[2022-10-20] MEDS: DEPAKOTE DELAYED-RELEASE TAB 500 MG PO SCH ×2 (08:58→21:14)
[2022-10-20] MEDS: ENOXAPARIN 30 MG/0.3 ML SYR SC SCH ×2 (08:59→21:15)
[2022-10-20] MEDS: CEFTRIAXONE 2 GM in SODIUM CHLORIDE 0.9% 100 ML IV SCH (08:59)
[2022-10-20] MEDS: METHYLPREDNISOLONE SOD SUCC 40 MG/ML VIAL 1ML IV SCH (08:59)
[2022-10-20] MEDS: BALSAM PERU/CASTOR OIL 60 GM OINT...G. TP SCH (09:01)
[2022-10-20] MEDS: INSULIN GLARGINE 100 UNITS/ML VIAL SQ SCH ×2 (09:21→16:51)
[2022-10-20] MEDS: REMDESIVIR 100MG 100 MG in SODIUM CHLORIDE 0.9% 100 ML IV SCH (16:08)
[2022-10-20] MEDS: TRAZODONE HCL 50 MG TAB PO SCH (21:13)
[2022-10-21] VITALS (8 sets, daily range): BP systolic 84–142; BP diastolic 42–84
[2022-10-21] MEDS: LEVALBUTEROL HCL SOLN NEBU 0.63 MG/3 ML NEB INH SCH ×7 (03:00→23:05)
[2022-10-21] MEDS: IPRATROPIUM BROMIDE 0.02% 2.5 ML NEB NEB SCH ×6 (03:00→23:05)
[2022-10-21] MEDS: ALBUTEROL/IPRATROPIUM 3 ML NEB NEB PRN ×2 (03:20→19:05)
[2022-10-21] MEDS: FUROSEMIDE INJ 10 MG/ML 4 ML VIAL IV SCH ×3 (06:11→23:15)
[2022-10-21] MEDS: GUAIFENESIN/DEXTROMETHORPHAN LIQD 5 ML UDC PO SCH ×3 (06:11→23:15)
[2022-10-21] MEDS: INSULIN GLARGINE 100 UNITS/ML VIAL SQ SCH ×2 (09:00→16:05)
[2022-10-21] MEDS: INSULIN REGULAR, HUMAN 100 UNIT/1 ML SQ SCH ×4 (09:15→21:36)
[2022-10-21] MEDS: ASPIRIN 81 MG ENTERIC COATED PO SCH (09:19)
[2022-10-21] MEDS: LEVETIRACETAM 500 MG TAB PO SCH ×2 (09:19→21:34)
[2022-10-21] MEDS: CEFTRIAXONE 2 GM in SODIUM CHLORIDE 0.9% 100 ML IV SCH (09:20)
[2022-10-21] MEDS: BUSPIRONE HCL 10 MG TABLET PO SCH ×2 (09:20→21:17)
[2022-10-21] MEDS: AMLODIPINE BESYLATE 10 MG TAB PO SCH (09:20)
[2022-10-21] MEDS: ATORVASTATIN 20 MG TAB PO SCH (09:20)
[2022-10-21] MEDS: DEPAKOTE DELAYED-RELEASE TAB 500 MG PO SCH ×2 (09:20→21:18)
[2022-10-21] MEDS: METHYLPREDNISOLONE SOD SUCC 40 MG/ML VIAL 1ML IV SCH (09:20)
[2022-10-21] MEDS: BALSAM PERU/CASTOR OIL 60 GM OINT...G. TP SCH (09:28)
[2022-10-21] MEDS: ENOXAPARIN 30 MG/0.3 ML SYR SC SCH ×2 (09:35→21:18)
[2022-10-21] MEDS: DULOXETINE HCL 30 MG DELAYED RELEASE PO SCH ×2 (09:35→21:17)
[2022-10-21] MEDS: HYDROCODONE/APAP 7.5MG-325MG 1 EA TAB PO PRN (12:19)
[2022-10-21] MEDS: REMDESIVIR 100MG 100 MG in SODIUM CHLORIDE 0.9% 100 ML IV SCH (15:41)
[2022-10-21] MEDS: TRAZODONE HCL 50 MG TAB PO SCH (21:35)
[2022-10-22] VITALS (8 sets, daily range): BP systolic 112–123; BP diastolic 58–92
[2022-10-22] MEDS: IPRATROPIUM BROMIDE 0.02% 2.5 ML NEB NEB SCH ×6 (03:00→23:00)
[2022-10-22] MEDS: ALBUTEROL/IPRATROPIUM 3 ML NEB NEB PRN ×3 (03:05→23:05)
[2022-10-22] MEDS: LEVALBUTEROL HCL SOLN NEBU 0.63 MG/3 ML NEB INH SCH ×5 (03:09→23:00)
[2022-10-22] MEDS: FUROSEMIDE INJ 10 MG/ML 4 ML VIAL IV SCH ×3 (06:23→22:37)
[2022-10-22] MEDS: GUAIFENESIN/DEXTROMETHORPHAN LIQD 5 ML UDC PO SCH ×3 (06:23→22:37)
[2022-10-22] MEDS: INSULIN GLARGINE 100 UNITS/ML VIAL SQ SCH ×2 (08:02→16:17)
[2022-10-22] MEDS: INSULIN REGULAR, HUMAN 100 UNIT/1 ML SQ SCH ×4 (08:02→21:50)
[2022-10-22] MEDS: METHYLPREDNISOLONE SOD SUCC 40 MG/ML VIAL 1ML IV SCH (08:34)
[2022-10-22] MEDS: CEFTRIAXONE 2 GM in SODIUM CHLORIDE 0.9% 100 ML IV SCH (08:34)
[2022-10-22] MEDS: ENOXAPARIN 30 MG/0.3 ML SYR SC SCH ×2 (08:38→21:30)
[2022-10-22] MEDS: BUSPIRONE HCL 10 MG TABLET PO SCH ×2 (08:41→21:29)
[2022-10-22] MEDS: ATORVASTATIN 20 MG TAB PO SCH (08:41)
[2022-10-22] MEDS: DEPAKOTE DELAYED-RELEASE TAB 500 MG PO SCH ×2 (08:41→21:28)
[2022-10-22] MEDS: DULOXETINE HCL 30 MG DELAYED RELEASE PO SCH ×2 (08:41→21:28)
[2022-10-22] MEDS: HYDROCODONE/APAP 7.5MG-325MG 1 EA TAB PO PRN ×2 (08:41→14:06)
[2022-10-22] MEDS: ASPIRIN 81 MG ENTERIC COATED PO SCH (08:42)
[2022-10-22] MEDS: BALSAM PERU/CASTOR OIL 60 GM OINT...G. TP SCH (08:42)
[2022-10-22] MEDS: AMLODIPINE BESYLATE 10 MG TAB PO SCH (08:42)
[2022-10-22] MEDS: LEVETIRACETAM 500 MG TAB PO SCH ×2 (08:42→21:30)
[2022-10-22] MEDS ORDERED: AZITHROMYCIN 250 MG TAB PO SCH (13:00)
[2022-10-22] MEDS: TRAZODONE HCL 50 MG TAB PO SCH (21:29)
[2022-10-23] VITALS: BP 114/67
[2022-10-23] MEDS: LEVALBUTEROL HCL SOLN NEBU 0.63 MG/3 ML NEB INH SCH ×4 (03:00→15:00)
[2022-10-23] MEDS: ALBUTEROL/IPRATROPIUM 3 ML NEB NEB PRN (03:00)
[2022-10-23] MEDS: IPRATROPIUM BROMIDE 0.02% 2.5 ML NEB NEB SCH ×4 (03:00→15:00)
[2022-10-23 04:00] VITALS: BP 107/54
[2022-10-23 06:08] VITALS: BP 115/64
[2022-10-23] MEDS: FUROSEMIDE INJ 10 MG/ML 4 ML VIAL IV SCH ×2 (06:11→15:21)
[2022-10-23] MEDS: GUAIFENESIN/DEXTROMETHORPHAN LIQD 5 ML UDC PO SCH ×2 (06:11→15:20)
[2022-10-23 06:18] LABS: BASOPHILS % 0.2 % (0.0-1.0); HEMATOCRIT 37.5 % (34.2-44.1); HEMOGLOBIN 11.2 g/dL (12.0-16.0); LYMPHOCYTES # (AUTO) 3.2 (1.0-3.2); LYMPHOCYTES % 34.5 % (18.0-39.1); MEAN CORPUSCULAR HEMOGLOBIN 24.3 pg (28-32); MEAN CORPUSCULAR HGB CONC 29.9 g/dL (31-35); MEAN CORPUSCULAR VOLUME 81.5 fL (81-99); MONOCYTES # (AUTO) 0.8 (0.2-0.8); MONOCYTES % 8.5 % (4.4-11.3); NEUTROPHILS # (AUTO) 4.9 (2.1-6.9); NEUTROPHILS % 52.8 % (38.7-80.0); PLATELET COUNT 250 x10e3/uL (140-360); RED CELL DISTRIBUTION WIDTH 14.2 % (11.7-14.4)
[2022-10-23 06:46] LABS: ANION GAP 17.6 mmol/L (8-16); CALCIUM 8.8 mg/dL (8.4-10.2); CREATININE, SERUM 0.72 mg/dL (0.57-1.11); MAGNESIUM 1.2 MG/DL (1.3-2.1); POTASSIUM 3.6 mmol/L (3.5-5.1)
[2022-10-23] MEDS: INSULIN REGULAR, HUMAN 100 UNIT/1 ML SQ SCH ×4 (07:30→17:03)
[2022-10-23] MEDS: INSULIN GLARGINE 100 UNITS/ML VIAL SQ SCH (09:00)
[2022-10-23 09:06] VITALS: BP 115/64
[2022-10-23] MEDS: DEPAKOTE DELAYED-RELEASE TAB 500 MG PO SCH (09:19)
[2022-10-23] MEDS: LEVETIRACETAM 500 MG TAB PO SCH (09:20)
[2022-10-23] MEDS: DULOXETINE HCL 30 MG DELAYED RELEASE PO SCH (09:21)
[2022-10-23] MEDS: ATORVASTATIN 20 MG TAB PO SCH (09:21)
[2022-10-23] MEDS: ENOXAPARIN 30 MG/0.3 ML SYR SC SCH (09:21)
[2022-10-23] MEDS: AMLODIPINE BESYLATE 10 MG TAB PO SCH (09:21)
[2022-10-23] MEDS: BUSPIRONE HCL 10 MG TABLET PO SCH (09:22)
[2022-10-23] MEDS: ASPIRIN 81 MG ENTERIC COATED PO SCH (09:22)
[2022-10-23] MEDS: METHYLPREDNISOLONE SOD SUCC 40 MG/ML VIAL 1ML IV SCH (09:22)
[2022-10-23 12:48] VITALS: BP 106/71
[2022-10-23] MEDS: BALSAM PERU/CASTOR OIL 60 GM OINT...G. TP SCH (15:18)
[2022-10-23 17:02] VITALS: BP 112/80
== END 2022-10-23 18:19 | DRG 871 ==
LOC: ER 11:44 → ERHOLD 12:52 → MED/SURG3 20:40 → ICU 10-17 11:55 → MED/SURG2 10-19 11:30
PROVIDERS: ADMIT Internal Medicine; ATTEND Internal Medicine
PROC: 3E03329 Introduction of Other Anti-infective into Peripheral Vein, Percutaneous Approach (ICD-10-PCS; 2022-10-15)
PROC: 3E03329 Introduction of Other Anti-infective into Peripheral Vein, Percutaneous Approach (ICD-10-PCS; 2022-10-15)
PROC: XW033E5 Introduction of Remdesivir Anti-infective into Peripheral Vein, Percutaneous Approach, New Technology Group 5 (ICD-10-PCS; principal; 2022-10-17)
PROC: 3E03329 Introduction of Other Anti-infective into Peripheral Vein, Percutaneous Approach (ICD-10-PCS; 2022-10-17)
PROC: 5A09357 Assistance with Respiratory Ventilation, Less than 24 Consecutive Hours, Continuous Positive Airway Pressure (ICD-10-PCS; 2022-10-17)
PROC: XW033E5 Introduction of Remdesivir Anti-infective into Peripheral Vein, Percutaneous Approach, New Technology Group 5 (ICD-10-PCS; 2022-10-18)
PROC: 3E03329 Introduction of Other Anti-infective into Peripheral Vein, Percutaneous Approach (ICD-10-PCS; 2022-10-18)
PROC: 5A09357 Assistance with Respiratory Ventilation, Less than 24 Consecutive Hours, Continuous Positive Airway Pressure (ICD-10-PCS; 2022-10-18)
PROC: XW033E5 Introduction of Remdesivir Anti-infective into Peripheral Vein, Percutaneous Approach, New Technology Group 5 (ICD-10-PCS; 2022-10-19)
PROC: XW033E5 Introduction of Remdesivir Anti-infective into Peripheral Vein, Percutaneous Approach, New Technology Group 5 (ICD-10-PCS; 2022-10-20)
PROC: XW033E5 Introduction of Remdesivir Anti-infective into Peripheral Vein, Percutaneous Approach, New Technology Group 5 (ICD-10-PCS; 2022-10-21)
PROC: 3E03329 Introduction of Other Anti-infective into Peripheral Vein, Percutaneous Approach (ICD-10-PCS; 2022-10-22)
PROC: 3E0F7SF Introduction of Other Gas into Respiratory Tract, Via Natural or Artificial Opening (ICD-10-PCS; 2022-10-22)
DX: B37.7 Candidal sepsis (principal); G93.41 Metabolic encephalopathy; J12.82 Pneumonia due to coronavirus disease 2019; U07.1 COVID-19; J96.01 Acute respiratory failure with hypoxia; J15.9 Unspecified bacterial pneumonia; L03.116 Cellulitis of left lower limb; J81.1 Chronic pulmonary edema; N17.9 Acute kidney failure, unspecified; A41.89 Other specified sepsis; I48.0 Paroxysmal atrial fibrillation; B37.49 Other urogenital candidiasis; E11.51 Type 2 diabetes mellitus with diabetic peripheral angiopathy without gangrene; L89.612 Pressure ulcer of right heel, stage 2; L89.152 Pressure ulcer of sacral region, stage 2; E78.5 Hyperlipidemia, unspecified; F31.9 Bipolar disorder, unspecified; L89.622 Pressure ulcer of left heel, stage 2; G40.909 Epilepsy, unspecified, not intractable, without status epilepticus; R53.81 Other malaise; I10 Essential (primary) hypertension; Z98.890 Other specified postprocedural states; Z79.82 Long term (current) use of aspirin; Z79.4 Long term (current) use of insulin; Z79.891 Long term (current) use of opiate analgesic; Z79.899 Other long term (current) drug therapy; Z88.8 Allergy status to other drugs, medicaments and biological substances; Z88.1 Allergy status to other antibiotic agents; Z91.040 Latex allergy status
CPT/HCPCS: 36415; 36600; 70450; 71045; 80048; 80053; 80061; 80202; 81001; 82550; 82553; 82805; 82948; 83036; 83605; 83735; 84484; 85025; 86140; 87040; 87086; 93005; 93306; 94640; 94660; 94799; 96372; 99252; 99284; J0248; J0456; J0692; J0696; J1100; J1450; J1650; J1817; J1940; J2920; J3370; J7030; J7050